=== PATIENT | female | born 1965 | race Caucasian/White ===

== ENCOUNTER → 2020-03-09 11:23 | Outpatient (CLI) | payer BC, SELFPAY ==
--- NOTE | ~2020-03-09 | MM_ITS ---
EXAMINATION: MM screening aneudy BI w mira HISTORY: Screening mammogram TECHNIQUE: Craniocaudal and mediolateral oblique 3-D tomosynthesis images were obtained and synthetic 2-D images were generated. CAD analysis was submitted and interpreted. COMPARISON: 02/05/2019, 02/02/2019, 07/11/2018, 12/31/2017 BREAST PARENCHYMAL COMPOSITION: The breasts are extremely dense, which lowers the sensitivity of mamm ography. FINDINGS: RIGHT BREAST: An asymmetry is present in the middle third of the slightly outer breast 2 cm from the nipple on the craniocaudal view. LEFT BREAST: There are stable changes of excisional biopsy in the left breast. There is no evidence o f suspicious mass, calcification, or architectural distortion to suggest malignancy. There has been n o significant interval change. IMPRESSION: 1. Right breast asymmetry on the craniocaudal view. 2. Additional mammographic views and possible breast ultrasound are recommended. BI-RADS Category 0: Incomplete: Needs additional imaging evaluation. Reviewed, dictated and finalized at location B. IMPRESSION: 1. Right breast asymmetry on the craniocaudal view. 2. Additional mammographic views and possible breast ultrasound are recommended . BI-RADS Category 0: Incomplete: Needs additional imaging evaluation.
== END ==
PROVIDERS: Visit Provider Nurse Practitioner Family
DX: Z12.31 Encounter for screening mammogram for malignant neoplasm of breast (principal); R92.8 Other abnormal and inconclusive findings on diagnostic imaging of breast
CPT/HCPCS: 77063; 77067

== ENCOUNTER → 2020-03-25 14:25 | Outpatient (CLI) | payer BC, SELFPAY ==
--- NOTE | ~2020-03-25 | MM_ITS ---
EXAMINATION: MM diagnostic mammo unilat RT HISTORY: Follow-up right breast asymmetry TECHNIQUE: Additional 3-D tomosynthesis images of the right breast were performed and synthetic 2-D i mages were generated. CAD analysis was submitted and interpreted. COMPARISON: Comparison to multiple prior studies sequentially, with oldest reviewed study dated 12/23. BREAST PARENCHYMAL COMPOSITION: The breasts are extremely dense, which lowers the sensitivity of mamm ography. FINDINGS: There are no suspicious masses, calcifications or architectural distortion in the right dejon ast to suggest malignancy. IMPRESSION: 1. No mammographic evidence for malignancy in the right breast. 2. Routine yearly screening mammogram and regular clinical breast examination are recommended. BI-RADS Category 1: Negative Reviewed, dictated and finalized at location A. IMPRESSION: 1. No mammographic evidence for malignancy in the right breast. 2. Routine yearly screening mammogram and regular clinical breast examination a re recommended. BI-RADS Category 1: Negative
== END ==
PROVIDERS: PCP Nurse Practitioner Family; Visit Provider Nurse Practitioner Family
DX: Z12.31 Encounter for screening mammogram for malignant neoplasm of breast (principal)
CPT/HCPCS: 77065

== ENCOUNTER → 2020-10-11 16:09 | Outpatient (CLI) | payer BC, SELFPAY ==
--- NOTE | ~2020-10-11 | US_ITS ---
EXAMINATION: US thyroid DATE: 10/11/2020 16:31 INDICATION: Thyroid nodule. TECHNIQUE: Multiple ultrasound images of the thyroid were obtained. COMPARISON: Ultrasound 04/17/2018 FINDINGS: The right thyroid lobe measures 4.9 x 1.7 x 1.5 cm. The left thyroid lobe measures 4.1 x 1.7 x 1.7 c m. In the right thyroid lobe, there is an 8 mm solid, hypoechoic, [id number] nodule with smooth margin without echogenic foci (TI-RADS TR4). In the left thyroid lobe, there is a 4 mm cystic lesion . IMPRESSION: 1. Small thyroid nodules, likely not clinically significant. No follow-up is needed. Reviewed, dictated and finalized at location A. MESSENGER IMPRESSION: 1. Small thyroid nodules, likely not clinically significant. No follow-up is ne eded.
== END ==
PROVIDERS: Visit Provider Internal Medicine Endocrinology, Diabetes & Metabolism
DX: E04.2 Nontoxic multinodular goiter (principal)
CPT/HCPCS: 76536

== ENCOUNTER → 2021-04-11 09:54 | Outpatient (CLI) | payer BC, SELFPAY ==
--- NOTE | ~2021-04-11 | MM_ITS ---
EXAMINATION: MM screening [facility] BI w mira HISTORY: Screening TECHNIQUE: Craniocaudal and mediolateral oblique 3-D tomosynthesis images were obtained and synthetic 2-D images were generated. CAD analysis was submitted and interpreted. COMPARISON: Comparison to multiple prior studies sequentially, with oldest reviewed study dated 12/31. BREAST PARENCHYMAL COMPOSITION: The breasts are extremely dense, which lowers the sensitivity of mamm ography. FINDINGS: The left breast is stable without evidence for malignancy. There is a developing cluster of indeterminate calcifications in the upper outer quadrant of the right breast posteriorly. IMPRESSION: 1. Developing cluster of indeterminate right breast calcifications. 2. Magnification views are recommended. BI-RADS Category 0: Incomplete: Needs additional imaging evaluation. Reviewed, dictated and finalized at location A.
== END ==
PROVIDERS: PCP Nurse Practitioner Family; Visit Provider Nurse Practitioner Family
DX: Z12.31 Encounter for screening mammogram for malignant neoplasm of breast (principal); R92.8 Other abnormal and inconclusive findings on diagnostic imaging of breast
CPT/HCPCS: 77063; 77067

== ENCOUNTER → 2021-04-27 09:21 | Outpatient (CLI) | payer BC, SELFPAY ==
--- NOTE | ~2021-04-27 | MM_ITS ---
EXAMINATION: MM diagnostic mammo unilat RT HISTORY: Follow-up right breast calcifications TECHNIQUE: Additional 3-D tomosynthesis images of the right breast were performed and synthetic 2-D i mages were generated. CAD analysis was submitted and interpreted. COMPARISON: 04/11/2021 BREAST PARENCHYMAL COMPOSITION: The breasts are heterogenously dense, which may obscure small masses. FINDINGS: There is a stable cluster of punctate monomorphic calcifications in the upper outer quadran t of the right breast which have a benign appearance. No suspicious masses, calcifications or archite ctural distortion to suggest malignancy. IMPRESSION: 1. No evidence for malignancy in the right breast. Benign calcifications. 2. Routine yearly screening mammogram and regular clinical breast examination are recommended. BI-RADS Category 2: Benign finding(s). Reviewed, dictated and finalized at location A. IMPRESSION: 1. No evidence for malignancy in the right breast. Benign calcifications. 2. Routine yearly screening mammogram and regular clinical breast examination a re recommended. BI-RADS Category 2: Benign finding(s).
== END ==
PROVIDERS: PCP Nurse Practitioner Family; Visit Provider Nurse Practitioner Family
DX: R92.1 Mammographic calcification found on diagnostic imaging of breast (principal)
CPT/HCPCS: 77065

== ENCOUNTER → 2021-11-10 08:00 | Outpatient (CLI) | payer BC, SELFPAY ==
--- NOTE | ~2021-11-10 | XR_ITS ---
XR lumbar spine min 4V DATE: 11/10/2021 08:41 INDICATION: Rheumatoid arthritis. Polyarticular osteoarthritis. TECHNIQUE: AP, lateral, bilateral oblique views, coned lateral lumbosacral view COMPARISON: lumbar spine 02/05/2017 CT lumbar spine FINDINGS: There is normal alignment of the lumbar spine. No fracture or bone destruction, spondylolys is or spondylolisthesis is evident. The lumbar and lumbosacral interspaces are well preserved. There is minimal spurring at L3-4. The sacroiliac joints are intact. There is a prominent of fecal material in the colon. IMPRESSION: Mild degenerative disc disease at L3-4 Reviewed, dictated and finalized at location A.
--- NOTE | ~2021-11-10 | XR_ITS ---
XR knee RT 3V DATE: 11/10/2021 08:41 INDICATION: Rheumatoid arthritis TECHNIQUE: [place] and standing AP and lateral views COMPARISON: None FINDINGS: No fracture or dislocation or joint effusion. Joint spaces are preserved. No radiopaque int ra-articular loose body or chondrocalcinosis. No periosteal reaction or bone destruction. IMPRESSION: Negative Reviewed, dictated and finalized at location A. IMPRESSION: Negative
--- NOTE | ~2021-11-10 | XR_ITS ---
XR knee LT 3V DATE: 11/10/2021 08:41 INDICATION: Rheumatoid arthritis TECHNIQUE: Standing AP and lateral views. [place] view. COMPARISON: None FINDINGS: No fracture or dislocation or joint effusion. No periosteal reaction or bone destruction. N o radiopaque intra-articular loose body or chondrocalcinosis or any significant joint space narrowing . IMPRESSION: Negative Reviewed, dictated and finalized at location A. IMPRESSION: Negative
== END ==
PROVIDERS: Visit Provider Internal Medicine
DX: M06.9 Rheumatoid arthritis, unspecified (principal); M47.816 Spondylosis without myelopathy or radiculopathy, lumbar region
CPT/HCPCS: 72110; 73562

== ENCOUNTER 2022-05-07 10:16 | Emergency (ER) | payer OTHER, BC, SELFPAY ==
[2022-05-07 11:03] VITALS: BP 99/65; PULSE 69; RESP 18; TEMP 36.4; O2SAT 100
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
== END 2022-05-07 11:50 | disposition home or self-care (01) ==
PROVIDERS: Emergency Provider Nurse Practitioner Family; PCP Nurse Practitioner Family
DX: M54.6 Pain in thoracic spine (principal); R10.31 Right lower quadrant pain; R10.32 Left lower quadrant pain; M19.90 Unspecified osteoarthritis, unspecified site; F41.9 Anxiety disorder, unspecified; F17.210 Nicotine dependence, cigarettes, uncomplicated; F32.A Depression, unspecified; E07.9 Disorder of thyroid, unspecified
CPT/HCPCS: 81003; 87086; 87088; 99213; G0463

== ENCOUNTER → 2022-08-10 12:30 | Outpatient (CLI) | payer BC, SELFPAY ==
--- NOTE | ~2022-08-10 | MM_ITS ---
EXAMINATION: MM screening aneudy BI w mira HISTORY: Screening mammogram TECHNIQUE: Craniocaudal and mediolateral oblique 3-D tomosynthesis images were obtained and synthetic 2-D images were generated. CAD analysis was submitted and interpreted. COMPARISON: 04/27/2021 diagnostic right mammogram 04/11/2021 bilateral screening mammogram 03/25/2020 diagnostic right mammogram 03/09/2020 bilateral screening mammogram BREAST PARENCHYMAL COMPOSITION: The breasts are extremely dense, which lowers the sensitivity of mamm ography. FINDINGS: Multiple bilateral microcalcifications are again noted, including a stable cluster grouped microcalcifications in the posterior outer mid right breast. There is no evidence of suspicious mass, calcification, or architectural distortion to suggest malignancy in either breast. There has been no suspicious interval change. IMPRESSION: 1. Benign findings. No mammographic evidence of malignancy. 2. Recommend routine screening mammography in one year. BI-RADS Category 2: Benign finding(s). Reviewed, dictated and finalized at location A. MIXER
== END ==
PROVIDERS: PCP Nurse Practitioner; Visit Provider Nurse Practitioner Family
DX: Z12.31 Encounter for screening mammogram for malignant neoplasm of breast (principal)
CPT/HCPCS: 77063; 77067

== ENCOUNTER 2023-01-21 02:32 | Emergency (ER) | payer BC, SELFPAY ==
--- NOTE | ~2023-01-21 | CT_ITS ---
EXAMINATION: CT abdomen pelvis w con INDICATION: Left lower quadrant pain TECHNIQUE: Computed tomographic images of the abdomen and pelvis were obtained after the administrati on of 100 cc of Omnipaque 350 intravenous contrast. The dose-length product (DLP) was 188.29 mGy-cm. Automated exposure control and iterative reconstruction technique were employed. COMPARISON: None available FINDINGS: Minimal dependent atelectasis is present in the lung bases. The heart size is normal. Cysts of the liver measure up to 13 mm. There is an 11 mm hyperenhancing lesion in liver segment VII, like ly a flash filling hemangioma. Punctate calcifications in an otherwise normal spleen likely represent healed granulomatous disease. The pancreatic duct is upper limits of normal in diameter in head and body. The gallbladder and adrenal glands are normal. The right kidney is unremarkable. A 3 mm hypoatt enuating lesion of the left kidney is too small to characterize but likely represents a cyst. There i s calcified atherosclerosis of the aorta and many of the other arteries. No pathologically enlarged a bdominal or pelvic lymph nodes are identified. No free intraperitoneal gas or evidence of bowel obstr uction. There is a small volume of pelvic ascites. There is a moderate volume of liquid stool in the colon. There is a 2 cm enhancing fibroid of the uterus. IMPRESSION: 1. Moderate volume of liquid stool in the colon which can be seen in the setting of diarrhea. Reviewed, dictated and finalized at location A. IMPRESSION: 1. Moderate volume of liquid stool in the colon which can be seen in the settin g of diarrhea.
[2023-01-21 02:40] VITALS: BP 121/66; PULSE 106; RESP 16; TEMP 36.6; O2SAT 97
[2023-01-21 02:56] LABS: Basophils Percent Auto 0.4 % (0.2-1.2); Eosinophils Absolute Auto 0.1 K/mm3 (0-0.3); Eosinophils Percent Auto 1.5 % (0-4.4); Hematocrit 41.9 % (37.0-47.0); Hemoglobin 13.8 g/dL (12.0-15.0); Immature Granulocyte Absolute 0.03 K/mm3 (0.00-0.031); Immature Granulocyte Percent A 0.4 % (0-0.5); Lymphocytes Absolute Auto 1.69 K/mm3 (0.9-3.2); Lymphocytes Percent Auto 20.6 % (18.3-44.2); Mean Corpuscular HGB Conc 32.9 g/dl (32-36); Mean Corpuscular Hemoglobin 30.3 pg (26-34); Mean Corpuscular Volume 92.1 fl (80-100); Mean Platelet Volume 8.7 fl (7.4-10.4); Monocytes Absolute Auto 1.1 K/mm3 (0.1-0.6); Monocytes Percent Auto 13.6 % (2.6-8.5); Neutrophils Absolute Auto 5.2 K/mm3 (1.3-6.7); Neutrophils Percent Auto 63.5 % (45.5-73.1); Platelet Count Result 246 k/mm3 (150-375); Red Blood Count 4.55 M/mm3 (4.2-5.4); Red Cell Distribution Width 13.8 % (11.5-14.5); White Blood Count 8.2 K/mm3 (4.5-10.0)
[2023-01-21 03:02] LABS: Appearance Urine Clear (Clear); Bacteria Urine None Seen /hpf; Bilirubin Urine Negative (Negative); Blood Urine Negative (Negative); Color Urine Yellow (Yellow); Glucose Urine UA Negative (Negative); Ketones Urine Negative (Negative); Leukocyte Esterase Ur Trace LEU/UL (Negative); Nitrate Urine Negative (Negative); Non Pathogenic Casts 0-2; Protein Urine Negative (Negative); RBC Urine 0-2 /hpf (0-2); Specific Grav Ur 1.012 (1.001-1.035); Squamous Epithelial Cell Urine None seen /hpf (Few); Urobilinogen Urine 0.2 mg/dL (<2.0); WBC Urine 0-5 /hpf; pH Urine 7.5 (5.0-9.0)
[2023-01-21 03:06] LABS: Add Urine Microscopic? YES
[2023-01-21 03:08] LABS: Alanine Aminotransferase 49 U/L (6-35); Albumin Level 4.3 g/dL (3.5-5.1); Alkaline Phosphatase 71 U/L (38-126); Anion Gap 3 mmol/L (8-16); Aspartate Amino Transferase 47 U/L (14-36); Bilirubin,Total 0.3 mg/dL (0.2-1.3); Blood Urea Nitrogen 9 mg/dL (7-17); Carbon Dioxide 30 mmol/L (22-30); Chloride 103 mmol/L (98-107); Estimated CRCL calculation 59 ml/min; Estimated Glomerular Filt Rate > 60; Glucose 126 mg/dL (65-110); Lipase 53 U/L (23-300); Potassium 4.2 mmol/L (3.4-5.0); Sodium 136 mmol/L (137-145)
[2023-01-21] MEDS: MORPHINE SULFATE (*CRX) 4 MG/ML INJ IV PUSH ×2 (03:57→06:06)
[2023-01-21] MEDS: ONDANSETRON INJ 4 MG/2 ML VIAL IV PUSH (03:57)
[2023-01-21] MEDS: SODIUM CHLORIDE 0.9% IV 1,000 ML 999 ML IV CONT (03:57)
--- NOTE | 2023-01-21 04:22 | ED.GENADULT ---
HPI - General Adult General Chief complaint: Abdominal Pain Stated complaint: diarrhea, L side pain Time Seen by Provider: 01/21/23 03:31 History of Present Illness HPI narrative: Patient a 57-year-old female who presents the emergency department with chief complaint of abdominal pain. Patient reports has been having diarrhea for some time now is actually seen her primary care provider treated with antibiotics patient reports she was started on 2 antibiotics and has completed one of them but she is not sure which one it was and had 1 pill left of the other 1 which was Flagyl patient reports that her abdomen is diffusely tender reports that it is worse whenever she lays flat and reports she is still having diarrhea. The patient reports no blood in her stool denies vomiting. Related Data Home Medications Medication Instructions Recorded Confirmed gabapentin 300 mg capsule 300 mg PO BID 08/03/19 05/07/22 lamotrigine 200 mg tablet 200 mg PO BID 08/03/19 05/07/22 lorazepam 0.5 mg tablet 1 mg PO DAILY 08/03/19 05/07/22 propranolol 10 mg tablet 20 mg PO TID 08/03/19 05/07/22 trazodone 150 mg tablet 150 mg PO DAILY 08/03/19 05/07/22 trihexyphenidyl 2 mg tablet 2 mg PO DAILY 08/03/19 05/07/22 cariprazine 3 mg capsule (Vraylar) 3 mg PO DAILY 05/07/22 05/07/22 folic acid 1 mg tablet 1 mg PO DAILY 05/07/22 05/07/22 levothyroxine 25 mcg tablet 25 mcg PO DIRECTED 05/07/22 05/07/22 spironolactone 50 mg tablet 150 mg PO DAILY 05/07/22 05/07/22 vilazodone 40 mg tablet 40 mg PO DAILY 05/07/22 05/07/22 Allergies Allergy/AdvReac Type Severity Reaction Status Date / Time No Known Drug Allergies Allergy Unknown N/A Verified 01/21/23 03:19 Review of Systems Review of Systems: A 10 system review of systems was completed on the patient and is negative except for what is stated in the HPI. Nursing and ancillary documentation was reviewed. [facility] Past Medical History Medical History Anxiety Arthritis Bilateral hand pain Depression Encounter for screening for other viral diseases Generalized osteoarthritis of multiple sites Migraines Seronegative rheumatoid arthritis of both hands Thyroid disease Vitamin D deficiency (~02/2020) Vitamin D deficiency Surgical History Surgical History H/O breast surgery Social History Social History Smoking status: Heavy tobacco smoker Alcohol intake: never Exam Narrative: GENERAL: Well-appearing, well-nourished, and in no acute distress. HEAD: Normocephalic, atraumatic. EYES: PERRLA and EOMI. ENT: Nares clear, no rhinorrhea or epistaxis. Mucous membranes moist. NECK: Supple. CHEST: Clear to auscultation. No respiratory distress. HEART: Regular rate and rhythm. No murmur heard. Normal peripheral pulses. ABDOMEN: Soft, diffusely tender to palpation, nondistended, normal active bowel sounds. EXTREMITIES: Normal range of motion. No edema. SKIN: Warm, dry, no rash. NEURO: No focal deficits. Alert and oriented x3. PSYCH: Normal mood and affect. Course Vital Signs Vital signs: Vital Signs Temperature 36.6 C 01/21/23 02:40 Pulse Rate 106 H 01/21/23 02:40 Respiratory Rate 16 01/21/23 02:40 Blood Pressure 121/66 01/21/23 02:40 Pulse Oximetry 97 01/21/23 02:40 Oxygen Delivery Room Air 01/21/23 02:40 Temperature 36.6 C 01/21/23 02:40 Pulse Rate 106 H 01/21/23 02:40 Respiratory Rate 16 01/21/23 02:40 Blood Pressure 121/66 01/21/23 02:40 Pulse Oximetry 97 01/21/23 02:40 Oxygen Delivery Room Air 01/21/23 02:40 Medical Decision Making MDM Narrative Medical decision making narrative: Differential diagnosis includes colitis, enteritis, diverticulitis, CBC was obtained which was within normal limits CMP was within normal limits with exception of mildly e
[2023-01-21 07:31] VITALS: BP 106/52; PULSE 93; RESP 16; O2SAT 100
== END 2023-01-21 07:34 | disposition home or self-care (01) ==
PROVIDERS: Emergency Provider Emergency Medicine; PCP Nurse Practitioner Family
DX: K52.9 Noninfective gastroenteritis and colitis, unspecified (principal); E07.9 Disorder of thyroid, unspecified; E55.9 Vitamin D deficiency, unspecified; M05.842 Other rheumatoid arthritis with rheumatoid factor of left hand; M05.841 Other rheumatoid arthritis with rheumatoid factor of right hand; M19.90 Unspecified osteoarthritis, unspecified site; F32.A Depression, unspecified; F41.9 Anxiety disorder, unspecified; F17.200 Nicotine dependence, unspecified, uncomplicated
CPT/HCPCS: 36415; 74177; 80053; 81001; 81025; 83690; 85025; 96361; 96374; 96375; 96376; 99284; J2270; J2405; J7030; Q9967

== ENCOUNTER 2023-03-12 00:56 | Day surgery (SDC) | payer BC, SELFPAY ==
[2023-03-01 13:08] VITALS: BMI 20.8
[2023-03-12 07:55] VITALS: BP 104/74; PULSE 96; RESP 16; TEMP 36.2; O2SAT 100
[2023-03-12] MEDS: LACTATED RINGERS 1,000 ML 150 ML IV CONT (08:04)
--- NOTE | 2023-03-12 08:28 | WPDANESEPPF ---
Anes - Initial Pre Proc Eval Procedure: Operation Date: 03/12/23 09:15 Proposed Procedures p Colonoscopy - Stephon Ibarra MD Date/Time: 03/12/23 08:28 Surgeon: Stephon Ibarra MD Pre Op Diagnosis: Left Lower Quad Pain, Diarrhea Patient Data Age: 57 Gender: F Height: 1.55 m Weight: 48.7 kg Last Vital Signs Temp 97.2 F L 03/12/23 07:55 Pulse 96 03/12/23 07:55 Resp 16 03/12/23 07:55 BP 104/74 03/12/23 07:55 Pulse Ox 100 03/12/23 07:55 O2 Del Method Room Air 03/12/23 07:55 Allergies Allergy/AdvReac Type Severity Reaction Status Date / Time No Known Drug Allergies Allergy Unknown N/A Verified 03/12/23 07:51 Home Medications Medication Instructions Recorded Confirmed Type gabapentin 300 mg capsule 600 mg PO TID 08/03/19 03/01/23 History lamotrigine 200 mg tablet 200 mg PO BID 08/03/19 03/01/23 History lorazepam 0.5 mg tablet 1 mg PO DAILY 08/03/19 03/12/23 History propranolol 10 mg tablet 20 mg PO TID 08/03/19 03/12/23 History trazodone 150 mg tablet 150 mg PO DAILY 08/03/19 03/01/23 History trihexyphenidyl 2 mg tablet 2 mg PO DAILY 08/03/19 03/01/23 History folic acid 1 mg tablet 1 mg PO DAILY 05/07/22 03/01/23 History levothyroxine 25 mcg tablet 25 mcg PO DIRECTED 05/07/22 03/01/23 History spironolactone 50 mg tablet 150 mg PO DAILY 05/07/22 03/01/23 History vilazodone 40 mg tablet 40 mg PO DAILY 05/07/22 03/01/23 History leflunomide 20 mg tablet 20 mg PO DAILY #30 tabs 11/09/22 03/01/23 Rx dicyclomine 20 mg tablet 20 mg PO TID PRN abdominal pain 02/25/23 03/01/23 Rx #30 tabs cyanocobalamin (vitamin B-12) 1,000 mcg IM WEEKLY 03/01/23 03/01/23 History 1,000 mcg/mL injection solution (Dodex) cyclobenzaprine 10 mg tablet 10 mg PO TID PRN Pain 03/01/23 03/01/23 History hydroxychloroquine 200 mg PO DAILY 03/01/23 03/01/23 History liothyronine 5 mcg tablet 5 mcg PO BID 03/01/23 03/01/23 History ziprasidone HCl 80 mg capsule 80 mg PO BID 03/01/23 03/01/23 History Patient hx anesthesia problems: none Family hx anesthesia problems: none Results Review: All pre-operative results and documents have been reviewed as part of the pre-operative evaluation. [facility] Past Medical History Medical History (Updated 02/25/23 @ 14:03 by SAAD Ivy) Anxiety Arthritis Bilateral hand pain Depression Encounter for screening for other viral diseases Generalized osteoarthritis of multiple sites Left lower quadrant abdominal pain Migraines Seronegative rheumatoid arthritis of both hands Thyroid disease Vitamin D deficiency (~02/2020) Vitamin D deficiency Surgical History Surgical History H/O breast surgery Social History Social History Smoking packs per day: 1 Smoking cigarettes per day: 20.0 Years smoked: 35 Smoking pack-years: 35.00 Smoking status: Current every day smoker Tobacco type: cigarettes Alcohol intake: never Living arrangements: with family Spiritual care concerns: No Anes - Eval Final PreProcedure Day of Procedure 03/12/23 08:28 Patient weight: normal Heart: regular rate and rhythm Lungs: clear to auscultation Airway: Mallampati scale class III Neurological: alert and oriented Last oral intake: >/= 8 hours ASA classification: III Emergent: no Anesthetic plan: proceed Anesthesia type and monitoring: general GIVS and standard monitoring Results Review: All pre-operative results and documents have been reviewed as part of the pre-operative evaluation. Informed Consent: The patient's anesthetic plan and its attendant risks and benefits were discussed with the patient/family/POA. Questions were solicited and answers provided to the satisfaction of the patient/family/POA.
--- NOTE | 2023-03-12 08:39 | WPDHPUPDATE1 ---
History and Physical Update Update Date/Time: 03/12/23 08:39 History and Physical has been reviewed, including an updated exam of the patient. There are NO changes in the patient's condition. Risks, benefits, and alternatives have been discussed and questions answered. Patient agrees to proceed with procedure.
[2023-03-12 08:59] VITALS: BP 99/59; PULSE 73; RESP 20; O2SAT 99
[2023-03-12 09:09] VITALS: BP 79/52; PULSE 71; RESP 12; O2SAT 98
[2023-03-12 09:16] VITALS: BP 93/60; PULSE 69; RESP 14; O2SAT 98
[2023-03-12 09:31] VITALS: BP 112/74; PULSE 72; RESP 16; O2SAT 98
== END 2023-03-12 09:35 | disposition home or self-care (01) ==
PROVIDERS: PCP Nurse Practitioner Family; Visit Provider Internal Medicine Gastroenterology
PROC: 0DJD8ZZ Inspection of Lower Intestinal Tract, Via Natural or Artificial Opening Endoscopic (ICD-10-PCS; CPT 45378; principal; 2023-03-12 09:15)
DX: Z12.11 Encounter for screening for malignant neoplasm of colon (principal); E07.9 Disorder of thyroid, unspecified; F41.9 Anxiety disorder, unspecified; F32.A Depression, unspecified; M06.042 Rheumatoid arthritis without rheumatoid factor, left hand; M06.041 Rheumatoid arthritis without rheumatoid factor, right hand; F17.210 Nicotine dependence, cigarettes, uncomplicated
CPT/HCPCS: 45378; J2704; J7120

== ENCOUNTER → 2023-05-20 11:32 | Outpatient (CLI) | payer BC, SELFPAY ==
--- NOTE | ~2023-05-20 | XR_ITS ---
XR knee LT min 4V 05/20/2023 12:22 INDICATION: Rheumatoid arthritis PROCEDURE: 4 views left knee COMPARISON: 11/10/2021 FINDINGS: Fracture, dislocation or subluxation is not identified. No significant joint effusion. The soft tissues appear within normal limits. No foreign bodies are identified. IMPRESSION: 1: NO ACUTE BONE OR JOINT ABNORMALITY IDENTIFIED. Reviewed, dictated and finalized at location B.
--- NOTE | ~2023-05-20 | XR_ITS ---
EXAM: XR knee RT min 4V DATE: 05/20/2023 12:22 HISTORY: M06.041 - RA without rheumatoid factor, osteoarthritis multi . COMPARISON: None available. FINDINGS: Normal mineralization. No fracture or dislocation. No lytic or blastic lesion. Joint space s are maintained. No erosion or periosteal change. Soft tissues within normal limits. IMPRESSION: Normal right knee radiograph findings. Reviewed, dictated and finalized at location K.
== END ==
PROVIDERS: PCP Internal Medicine; Visit Provider Internal Medicine
DX: M06.041 Rheumatoid arthritis without rheumatoid factor, right hand (principal); M06.042 Rheumatoid arthritis without rheumatoid factor, left hand; M15.9 Polyosteoarthritis, unspecified
CPT/HCPCS: 73564

== ENCOUNTER 2024-03-11 15:05 | Outpatient (CLI) | payer OTHER, SELFPAY ==
--- NOTE | ~2024-03-11 | MM_ITS ---
EXAMINATION: MM screening [facility] BI w mira HISTORY: Screening TECHNIQUE: Craniocaudal and mediolateral oblique 3-D tomosynthesis images were obtained and synthetic 2-D images were generated. CAD analysis was submitted and interpreted. COMPARISON: Comparison to multiple prior studies sequentially, with oldest reviewed study dated 02/05. BREAST PARENCHYMAL COMPOSITION: Dense: The breasts are heterogeneously dense, which may obscure small masses FINDINGS: There is no evidence of suspicious mass, calcification, or architectural distortion to sugg est malignancy in either breast. There has been no suspicious interval change. IMPRESSION: 1. No mammographic evidence of malignancy. 2. Recommend routine screening mammography in one year. BI-RADS Category 1: Negative Reviewed, dictated and finalized at location B.
== END 2024-03-11 15:06 ==
PROVIDERS: PCP Nurse Practitioner; Visit Provider Nurse Practitioner
DX: Z12.31 Encounter for screening mammogram for malignant neoplasm of breast (principal)
CPT/HCPCS: 77063; 77067

== ENCOUNTER 2024-04-14 10:08 | Outpatient (CLI) | payer OTHER, SELFPAY ==
--- NOTE | 2024-04-14 10:24 | EST_ITS ---
Patient Info Name: Maite Gonzales Age: 58 years : 1965 Gender: Female Ht: 61 in Wt: 111 lbs BSA: 1.47 m2 HR: 72 bpm BP: 116 / 74 mmHg Exam Date: 04/14/2024 10:54 AM Exam Location: [facility] Patient Status: Outpatient Admit Date: 04/14/2024 Staff Ordering Physician: Mariano Barron DO Attending Provider: Mariano Barron DO Exercise Technologist: Lizet Schmitt CT Exercise Physician: Mariano Barron DO Exam Type: CA stress test treadmill Study Info A treadmill exercise stress test was performed. Summary 1. 1. Negative Justyn exercise stress test for ischemic ST changes by ECG criteria. 2. 2. Reduced functional capacity, achieving 7 METs of workload. 3. 3. Appropriate HR response to exercise. 4. 4. Appropriate HR recovery at 1 minute post exercise. 5. 5. No imaging with stress testing. 6. 6. Patient informed of the above results. Protocol: Justyn Stress ECG Details Stage: REST Duration (min): 1 min : 8 sec Speed (mph): 0.0 Grade (%): 0 HR (bpm): 77 SBP (mmHg): 116 DBP (mmHg): 74 METS: --- Stage: REST Duration (min): 4 min : 32 sec Speed (mph): 0.0 Grade (%): 0 HR (bpm): 88 SBP (mmHg): 116 DBP (mmHg): 74 METS: --- Stage: STAGE 1 Duration (min): 1 min : 0 sec Speed (mph): 1.7 Grade (%): 10 HR (bpm): 113 SBP (mmHg): 116 DBP (mmHg): 74 METS: --- Stage: STAGE 1 Duration (min): 2 min : 0 sec Speed (mph): 1.7 Grade (%): 10 HR (bpm): 119 SBP (mmHg): 116 DBP (mmHg): 74 METS: --- Stage: STAGE 1 Duration (min): 3 min : 0 sec Speed (mph): 1.7 Grade (%): 10 HR (bpm): 121 SBP (mmHg): 162 DBP (mmHg): 56 METS: --- Stage: STAGE 2 Duration (min): 1 min : 0 sec Speed (mph): 2.5 Grade (%): 12 HR (bpm): 133 SBP (mmHg): 162 DBP (mmHg): 56 METS: --- Stage: STAGE 2 Duration (min): 1 min : 45 sec Speed (mph): 2.5 Grade (%): 12 HR (bpm): 141 SBP (mmHg): 198 DBP (mmHg): 59 METS: --- Stage: RECOVERY Duration (min): 0 min : 14 sec Speed (mph): 0.0 Grade (%): 0 HR (bpm): 144 SBP (mmHg): 198 DBP (mmHg): 59 METS: --- Stage: RECOVERY Duration (min): 1 min : 14 sec Speed (mph): 0.0 Grade (%): 0 HR (bpm): 115 SBP (mmHg): 198 DBP (mmHg): 59 METS: --- Stage: RECOVERY Duration (min): 2 min : 14 sec Speed (mph): 0.0 Grade (%): 0 HR (bpm): 94 SBP (mmHg): 198 DBP (mmHg): 59 METS: --- Stage: RECOVERY Duration (min): 3 min : 3 sec Speed (mph): 0.0 Grade (%): 0 HR (bpm): 96 SBP (mmHg): 154 DBP (mmHg): 62 METS: --- Rest HR: 88 bpm Peak HR: 144 bpm Rest Sys BP: 116 mmHg Peak Sys BP: 198 mmHg Max Pred HR: 164 bpm % Max Pred HR: 88 % Target HR: 139 bpm Max RPP: 28,512 bpm*mmHg Gusman Score: -5 Termination Reason: Reached target heart rate or workload Cardiac Symptoms: Shortness of breath Max ST Seg Deviation: 2.00 mm Total Time: 4 min : 45 sec Rest Rushing BP: 74 mmHg Peak Rushing BP: 59 mmHg Angina Score: None Total METS:
== END 2024-04-14 10:09 | disposition home or self-care (01) ==
PROVIDERS: PCP Nurse Practitioner; Visit Provider Internal Medicine Cardiovascular Disease
DX: R07.9 Chest pain, unspecified (principal)
CPT/HCPCS: 93017

== ENCOUNTER 2024-10-26 10:15 | Outpatient (CLI) | payer OTHER, SELFPAY ==
--- NOTE | ~2024-10-26 | CT_ITS ---
Pre and postcontrast Head CT History: Chronic headache Technique: Axial imaging of the brain was performed prior to and following intravenous administratio n of 100 cc of Omnipaque 350 contrast material.. Dose reduction technique was used on this scan by ut ilizing automated exposure control and iterative reconstruction technique. The dose-length product (D LP) was 1199.14 mGy-cm. Findings: There is no evidence of intracranial hemorrhage, mass lesion, or acute infarct. Brain par enchyma appears normal. The ventricles and subarachnoid spaces are normal in size. The calvarium ap pears normal. The visualized paranasal sinuses and mastoid air cells are clear. No abnormal postcontrast enhancement identified. Impression: No significant abnormality seen. Reviewed, dictated and finalized at [facility]. Impression: No significant abnormality seen.
--- NOTE | ~2024-10-26 | CT_ITS ---
CT Scan of the Chest without Contrast: Clinical Indication: Lung cancer screening, nicotine dependence Technique: Contiguous sections were acquired throughout the chest without intravenous contrast. Dose reduction technique was used on this scan by utilizing automated exposure control and iterative recon struction technique. The dose-length product (DLP) was 35.53 mGy-cm. Findings: There is no evidence of any significant mediastinal, hilar or axillary lymphadenopathy. The mediastin al soft tissues appear normal. There is no evidence of pleural or pericardial effusion. Calcified right middle lobe granuloma present. Images through the upper abdomen reveal no abnormalities. Impression: Lung RADS 2: Benign appearance. 12 month follow-up screening CT advised. Reviewed, dictated and finalized at location . Impression: Lung RADS 2: Benign appearance. 12 month follow-up screening CT advised.
== END 2024-10-26 10:16 | disposition home or self-care (01) ==
LOC: MICIMG 10:18
PROVIDERS: PCP Family Medicine; Visit Provider Family Medicine
DX: Z12.2 Encounter for screening for malignant neoplasm of respiratory organs (principal); R51.9 Headache, unspecified; F17.210 Nicotine dependence, cigarettes, uncomplicated
CPT/HCPCS: 70470; 71271; Q9967

== ENCOUNTER 2025-03-29 15:40 | Outpatient (CLI) | payer OTHER, SELFPAY ==
--- NOTE | ~2025-03-29 | MM_ITS ---
EXAMINATION: MM screening [facility] BI w mira HISTORY: Screening mammogram TECHNIQUE: Craniocaudal and mediolateral oblique 3-D tomosynthesis images were obtained and synthetic 2-D images were generated. CAD analysis was submitted and interpreted. COMPARISON: 03/11/2024, 08/10/2022, 04/11/2021 BREAST PARENCHYMAL COMPOSITION:Dense: The breasts are heterogeneously dense, which may obscure small masses. FINDINGS: No suspicious mass, calcification, or architectural distortion are identified in either breast to suggest malignancy. There has been no suspicious interval change. IMPRESSION: No mammographic evidence of malignancy. Recommend routine screening mammography in one year. BI-RADS Category 1: Negative Reviewed, dictated and finalized at location .
== END 2025-03-29 15:41 | disposition home or self-care (01) ==
LOC: MICIMG 15:40
PROVIDERS: PCP Nurse Practitioner; Visit Provider Family Medicine
DX: Z12.31 Encounter for screening mammogram for malignant neoplasm of breast (principal)
CPT/HCPCS: 77063; 77067

== ENCOUNTER 2025-04-17 15:54 | Emergency (ER) | payer OTHER, SELFPAY ==
--- OUTSIDE RECORDS SUMMARY | 2001-06-21 05:15 | XMS_ITS | Continuity of Care Document ---
Author Organization [facility] Address [address] [place] [address] [place] [address] Phone Care Team Providers Care Potter Or Ceramic Artist Name Role Phone Baldemar Valente DO Unavailable Unavailable Advance Directives Directive Yes / No Effective Date File Name No Information Encounters Encounter Description Practice Location Reason(s) For Visit Diagnoses Date Provider Providers Copied on Encounter [facility], [address], [place], [place], [id number], tel:[phone] [facility] No Information Ambrosio Hernandez. [address] [place], [address], [place]. tel: [phone] Family History Family Member Type Diagnosis Age At Onset No Information Payers Payer name Insurance type Covered alliance party ID Authoriza tibandar(s) [employer] SOI CI [id number] Social History Type Description Quantity Date Captured Comments Sex Female Smoking Status No Information Chief Complaint And Reason For Visit No Information Reason For Referral Reason For Referral No Information History Of Present Illness Encounter Date Complaint History Of Prese nt Illness No Information Functional Status Date Functional Assessmen t No Information Instructions Date Instruction Additional Infor mation No Information Assessments Type Assessment Date No Information Patient Care Teams Name Effective Dates (start - stop) Status Members No Information
--- OUTSIDE RECORDS SUMMARY | 2001-06-21 05:15 | XMS_ITS | Continuity of Care Document ---
Author Organization [facility] Address [address] [place] [address] [place] [address] Phone Care Team Providers Care Mosaic Worker Name Role Phone Baldemar Valente DO Unavailable Unavailable Advance Directives Directive Yes / No Effective Date File Name No Information Encounters Encounter Description Practice Location Reason(s) For Visit Diagnoses Date Provider Providers Copied on Encounter [facility], [address], [place], [place], [id number], tel:[phone] [facility] No Information Ambrosio Hernandez. [address] [place], [address], [place]. tel: [phone] Family History Family Member Type Diagnosis Age At Onset No Information Payers Payer name Insurance type Covered green party ID Authoriza tibandar(s) [employer] SOI CI [id number] Social History Type Description Quantity Date Captured [...]
--- OUTSIDE RECORDS SUMMARY | 2025-04-17 15:57 | XMS_ITS | Clinical Summary ---
Author Organization [facility] Address [address] [place] [address] Care Team Providers Care Data Analytics Architect Name Role Phone Unavailable Primary Care Provider Unavailabl e Encounters Date Type Department Care Team Description 03/12/2025 Telephone [facility], [place] [address] [place] [address] Se[place] Ron, A Appointment Request (Self ref) from Last 3 Months Social History Tobacco Use Types Packs/Day Years Used Date Smoking Tobacco: Never Assessed Comments Unknown Sex and Gender Information Value Date Recorded Sex Assigned at Not on file Legal Sex Female 6:29 PM CDT Gender Identity Not on file Sexual Orientation Not on file Plan of Treatment Health Maintenance Due Date Last Done Comments Cervical Cancer Screening Pa p Smear (Age 30 to 64) Every 3 Years 1965 Colorectal Cancer Screening Colonoscopy (10 Years) 1965 Annual Physical 1970 Hepatitis C 1985 DTaP, Tdap and Td Vaccines ( 1 - Tdap) 1986 Hepatitis B Vaccines (1 of 3 - 19+ 3-dose series) 1986 Cervical Cancer Screening Pa p with HPV Testing (Age 30 to 64) Every 5 Years 1997 Cervical Cancer Screening with HPV 1997 Mammogram Screening 2007 Pneumococcal Vaccine: 50+ Ye ars (1 of 1 - PCV) 2017 Zoster Vaccines (1 of 2) 2017 COVID-19 Vaccine (2023-2 5 season) 2025 Meningococcal B Vaccine Aged Out No l onger eligible based on patient's age to complete this topic Meningococcal Vaccine Aged Out No lisa abbie eligible based on patient's age to complete this topic RSV Immunizations Under 20 Months Aged Out No longer eligible based on patient's age to complete this topic
--- NOTE | 2025-04-17 16:00 | ED.GENADULT ---
HPI - General Adult General Chief complaint: Abdominal Pain Stated complaint: stomach pain Time Seen by Provider: 04/17/25 16:00 Source: patient Mode of arrival: ambulatory Limitations: no limitations History of Present Illness HPI narrative: 59-year-old female patient presents to the [facility] with complaints of nausea, vomiting abdominal pain. Patient states that last Saturday she had some issues with vomiting. Patient states she had some chicken and green beans that she can recall and shortly after eating she started vomiting. Patient states that it had resolved on Saturday and Saturday and had another episode of vomiting on Saturday after drinking her coffee. Patient states that she has not had any vomiting today but has been belching a lot and does have some nausea. Patient states only mild abdominal pain at times last bowel movement was today but states that she does take stool softeners daily in order to go to the bathroom. Related Data Home Medications ?Medication ?Instructions ?Recorded ?Confirmed ?Last Taken ?Type gabapentin 300 mg capsule 600 mg PO TID 08/03/19 02/20/24 Unknown History lamotrigine 200 mg tablet 200 mg PO BID 08/03/19 02/20/24 Unknown History lorazepam 0.5 mg tablet 1 mg PO DAILY 08/03/19 02/20/24 03/12/23 History propranolol 10 mg tablet 20 mg PO TID 08/03/19 02/20/24 03/12/23 History trazodone 150 mg tablet 150 mg PO DAILY 08/03/19 02/20/24 Unknown History trihexyphenidyl 2 mg tablet 2 mg PO DAILY 08/03/19 02/20/24 Unknown History levothyroxine 25 mcg tablet 25 mcg PO DIRECTED 05/07/22 02/20/24 Unknown History spironolactone 50 mg tablet 150 mg PO DAILY 05/07/22 02/20/24 Unknown History vilazodone 40 mg tablet 40 mg PO DAILY 05/07/22 02/20/24 Unknown History cyanocobalamin (vitamin B-12) 1,000 mcg IM WEEKLY 03/01/23 02/20/24 Unknown History 1,000 mcg/mL injection solution (Dodex) liothyronine 5 mcg tablet 5 mcg PO BID 03/01/23 02/20/24 Unknown History ziprasidone HCl 80 mg capsule 80 mg PO BID 03/01/23 02/20/24 Unknown History Allergies Allergy/AdvReac Type Severity Reaction Status Date / Time amitriptyline AdvReac Unknown bloating Verified 04/17/25 15:59 bupropion (From Wellbutrin) AdvReac Unknown Headache Verified 04/17/25 15:59 Review of Systems Review of Systems: CONSTITUTIONAL: Denies fever, chills, or sweats. EYES: Denies visual changes, redness, or discharge. ENT: Denies rhinorrhea, congestion, sore throat, or otalgia. CARDIOVASCULAR: Denies chest pain, palpitations, or edema. RESPIRATORY: Denies cough or dyspnea. GASTROINTESTINAL: Positive abdominal pain, nausea, vomiting, denies diarrhea. GENITOURINARY: Denies dysuria or hematuria. SKIN: Denies rash or itching. MUSCULOSKELETAL: Denies back pain, joint pain, or myalgia. NEUROLOGIC: Denies headache, numbness, or weakness. PSYCHIATRIC: Denies anxiety or depression. [facility] Past Medical History Medical History Left lower quadrant abdominal pain Seronegative rheumatoid arthritis of both hands Vitamin D deficiency Generalized osteoarthritis of multiple sites Bilateral hand pain Encounter for screening for other viral diseases Vitamin D deficiency (~02/2020) Anxiety Arthritis Depression Migraines Thyroid disease Surgical History Surgical History H/O breast surgery Family History Family History Other Asthma Depression Hypertension Social History Social History Smoking packs per day: 1 Smoking cigarettes per day: 20.0 Years smoked: 35 Smoking pack-years: 35.00 Smoking status: Current every day smoker Tobacco type: cigarettes Alcohol intake: never Substance use: never Substance use type: does not use Lack of Transportation: No Lack of Food: Never True Current Housing: I Have Housing Concerned About Future Housing: No Difficulty Paying Gas/Electric Bills: No Difficulty Paying for Meds: No Currently Unemployed: No Education: Decline to Answer Difficulty w/ Childcare or Family Care: No Living arrangements: with family Spiritual care concerns: No Comments At the time of my signature I agree with nursing past medical history, surgical, social, and family history. There is no relevant family history pertinent to the presenting complaint. Exam Narrative: GENERAL: Well-appearing, well-nourished, and in no acute distress. HEAD: Normocephalic, atraumatic. EYES: PERRLA and EOMI. ENT: Nares clear, no rhinorrhea or epistaxis. Mucous membranes moist. NECK: Supple. No lymphadenopathy CHEST: Clear to auscultation. No respiratory distress. HEART: Regular rate and rhythm. No murmur heard. Normal peripheral pulses. ABDOMEN: Soft, flat, nondistended. No guarding, rebound tenderness, or rigid. No pulsatilla masses. hyperactive Bowel sounds present in all four quadrants. No organomegaly. Negative Riddle?s sign. No periumbicial tenderness. No Supra public tenderness or distension. Good femoral pulses bilaterally. No hernia noted. No scars or surface trauma. EXTREMITIES: Normal range of motion. No edema. SKIN: Warm, dry, no rash. NEURO: No focal deficits. Alert and oriented x3. Course Course Level of Care: Express Care Visit Vital Signs Vital signs: Vital Signs Temperature 36.5 C 04/17/25 16:02 Pulse Rate 76 04/17/25 16:02 Respiratory Rate 18 04/17/25 16:02 Blood Pressure 126/48 L 04/17/25 16:02 Pulse Oximetry 98 04/17/25 16:02 Oxygen Delivery Room Air 04/17/25 16:02 Temperature 36.5 C 04/17/25 16:02 Pulse Rate 76 04/17/25 16:02 Respiratory Rate 18 04/17/25 16:02 Blood Pressure 126/48 L 04/17/25 16:02 Pulse Oximetry 98 04/17/25 16:02 Oxygen Delivery Room Air 04/17/25 16:02 vital signs reviewed. Medical Decision Making MDM Narrative Medical decision making narrative: Discussed with patient that her abdominal exam is negative today which is reassuring. Discussed with her that just because she does not have any acute gallbladder issues today I would still recommend that she follow-up with her primary doctor for a possible evaluation or ultrasound of her gallbladder. Discussed with patient that I will go ahead and provide her some Zofran for the nausea vomiting as well as some medications to help with GERD symptoms. Also discussed with patient that she may want to look into possibly taking some probiotics to help with her abdominal issues but regardless she needs to follow up with her doctor for further testing as needed. Patient verbalized understanding denies any other questions or concerns at this time. Differential Diagnosis Differential Diagnosis: Differential diagnosis: Appendicitis, ovarian torsion, gallbladder disease, ovarian torsion, pancreatitis, lower lobe pneumonia,AAA, AMI or ACS, DKA, diverticulitis. Vital Signs Vital Signs: Vital Signs Temperature 36.5 C 04/17/25 16:02 Pulse Rate 76 04/17/25 16:02 Respiratory Rate 18 04/17/25 16:02 Blood Pressure 126/48 L 04/17/25 16:02 Pulse Oximetry 98 04/17/25 16:02 Oxygen Delivery Room Air 04/17/25 16:02 Temperature 36.5 C 04/17/25 16:02 Pulse Rate 76 04/17/25 16:02 Respiratory Rate 18 04/17/25 16:02 Blood Pressure 126/48 L 04/17/25 16:02 Pulse Oximetry 98 04/17/25 16:02 Oxygen Delivery Room Air 04/17/25 16:02 Critical Care Time Critical Care Time Critical Care Time: No Discharge Plan Discharge Clinical Impression: GERD (gastroesophageal reflux disease) Patient Disposition: Home Condition: Stable Instructions: Antibiotic Form, GERD (Gastroesophageal Reflux Disease) (ED) Additional Instructions: No serious cause of abdominal pain is found at this time. It is important to carefully watch for changes in the abdominal pain that might suggest a serious condition. See your doctor or return to the emergency department immediately if your condition gets worse. These symptoms suggest serious causes of abdominal pain: Your unable to walk easily or walking in a bent over position. You are experiencing pain in the right lower part of her abdomen. Stepping or jumping results in severe pain. The abdomen is hard and painful when you press on it. There is severe abdominal pain when coughing. You are vomiting or gagging. Vomiting is bloody or green or looks like chocolate or coffee. The belly looks very full or basic. You're experiencing severe pain every 3-20 minutes. The stool is bloody or black. You are drowsy, weak, fussy, pale. Gastroesophageal reflux disease (GERD) is a backflow of acid from the stomach into the swallowing tube (esophagus). Home care These home care steps can help you manage GERD: Maintain a healthy weight. Get help to lose any extra pounds. Avoid lying down after meals. Avoid eating late at night. Elevate the head of your bed by 6 inches. You can do this by placing wooden blocks or bed risers under the head of your bed. Avoid wearing tight-fitting clothes. Avoid foods that might irritate your stomach, such as the following: Alcohol Fat Chocolate Caffeine Spearmint or peppermint Begin an exercise program. You can benefit from simple activities, such as walking or gardening. Break the smoking habit. Enroll in a stop-smoking program to improve your chances of success. Limit alcohol intake to no more than 2 drinks a day. Take your medicines exactly as directed. Don?t skip doses. Avoid [id number] nonsteroidal anti-inflammatory medicines, such as aspirin and ibuprofen, unless recommended by your healthcare provider for certain conditions. If possible, avoid nitrates (heart medicines, such as nitroglycerin and isosorbide dinitrate ). Follow-up with your primary doctor in the next 5-7 days as needed. When to call the healthcare provider Call your healthcare provider immediately if you have any of the following: Trouble swallowing Pain when swallowing Feeling of food caught in your chest or throat Pain in the neck, chest, or back Heartburn that causes you to vomit Vomiting blood Black or tarry stools (from digested blood) More saliva (watering of the mouth) than usual Weight loss of more than 3% to 5% of your total body weight in a month Hoarseness or sore throat that won?t go away Choking, coughing, or wheezing start repairing her get by taking some [id number] probiotics this will help with your digestive system and make it easier to go to the bathroom. Patient Language: Cymro Prescriptions: New ondansetron 4 mg tablet,disintegrating 4 mg PO Q6H PRN (Reason: nausea and vomiting) Qty: 14 0RF famotidine [Pepcid] 20 mg tablet 20 mg PO DAILY Qty: 30 0RF omeprazole 10 mg capsule,delayed release(DR/EC) 10 mg PO DAILY Qty: 30 0RF No Action spironolactone 50 mg Tablet 150 mg PO DAILY levothyroxine 25 mcg Tablet 25 mcg PO DIRECTED vilazodone 40 mg Tablet 40 mg PO DAILY Rx Instructions: must administer with a meal/food gabapentin 300 mg capsule 600 mg PO TID lamotrigine 200 mg tablet 200 mg PO BID lorazepam 0.5 mg tablet 1 mg PO DAILY propranolol 10 mg tablet 20 mg PO TID trazodone 150 mg tablet 150 mg PO DAILY trihexyphenidyl 2 mg tablet 2 mg PO DAILY hydroxychloroquine [Plaquenil] 200 mg tablet 200 mg PO DAILY Qty: 90 1RF leflunomide 20 mg tablet 20 mg PO DAILY Qty: 30 4RF methocarbamol 750 mg tablet 750 mg PO TID PRN (Reason: muscle spasm) Qty: 90 3RF dicyclomine 20 mg tablet 20 mg PO TID PRN (Reason: abdominal pain) Qty: 30 0RF ziprasidone HCl 80 mg Capsule 80 mg PO BID Rx Instructions: give with food (meal/snack) liothyronine 5 mcg Tablet 5 mcg PO BID cyanocobalamin (vitamin B-12) [Dodex] 1,000 mcg/mL solution 1,000 mcg IM WEEKLY prednisone 2.5 mg tablet 2.5 mg PO DAILY Qty: 40 0RF Rx Instructions: take 2 tabs BID for 5 days, 1 tab BID for 5 days, 1 tab qd for 5 days and then 1 tab qod for 5 doses and stop Follow-up/Referrals: Noah,MD Saul [Primary Care Provider, Unknown] Time of Disposition: 16:28
[2025-04-17 16:02] VITALS: BP 126/48; PULSE 76; RESP 18; TEMP 36.5; O2SAT 98
== END 2025-04-17 16:30 | disposition home or self-care (01) ==
PROVIDERS: Emergency Provider Nurse Practitioner Family; PCP Family Medicine
DX: K21.9 Gastro-esophageal reflux disease without esophagitis (principal); M06.042 Rheumatoid arthritis without rheumatoid factor, left hand; M06.041 Rheumatoid arthritis without rheumatoid factor, right hand; M15.9 Polyosteoarthritis, unspecified; E07.9 Disorder of thyroid, unspecified; F41.9 Anxiety disorder, unspecified; F32.A Depression, unspecified; F17.210 Nicotine dependence, cigarettes, uncomplicated
CPT/HCPCS: 99213; G0463

== ENCOUNTER 2025-05-07 16:20 | Emergency (ER) | payer OTHER, SELFPAY ==
--- OUTSIDE RECORDS SUMMARY | 2001-06-21 05:15 | XMS_ITS | Continuity of Care Document ---
Author Organization [facility] Address [address] [place] [address] [place] [address] Phone Care Team Providers Care Media Relations Specialist Name Role Phone Baldemar Valente DO Unavailable Unavailable Advance Directives Directive Yes / No Effective Date File Name No Information Encounters Encounter Description Practice Location Reason(s) For Visit Diagnoses Date Provider Providers Copied on Encounter [facility], [address], [place], [place], [id number], tel:[phone] [facility] No Information Ambrosio Hernandez. [address] [place], [address], [place]. tel: [phone] Family History Family Member Type Diagnosis Age At Onset No Information Payers Payer name Insurance type Covered libertarian ID Authoriza tibandar(s) [employer] SOI CI [id number] Social History Type Description Quantity Date Captured [...]
--- OUTSIDE RECORDS SUMMARY | 2025-05-07 16:26 | XMS_ITS | Data Portability ---
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 Under sterile conditions I injected both knee joints in the office today with Euflexxa injection 2. These were obtained through the specialty pharmacy by the patient. I will see her back next week for the 3rd injection both knees she voiced understanding agrees above plan she will call for any further problems difficulties or questions. Not available 11/24/2024 14:11:03 12/01/2024 12/01/2024 The patient has mild primary osteoarthritis both knees with chronic pain. Under sterile conditions at her request I injected both knee joints in the office today with Euflexxa injection number 3. The patient tolerated both procedures well. She brought the medication from the specialty pharmacy. I will see her back in 6 months for another round of gel shots if necessary we could do cortisone in between if needed. She voiced understanding and agreed with the above plan she will call for any further problems difficulties or questions. Not available 12/01/2024 14:14:14 12/28/2024 12/28/2024 D/w pt about her findings and further plan of care. Explained pt about different options for pt. Advised pt to f/u with Neuro. Info given to pt. Meds as directed. Cont OTC Benadryl as directed prn. Advised pt to f/u with Ophtho if any vision concerns Or Annually. Educated pt about alarming symptoms to monitor at home and call us back or get checked in ED. F/u as directed. [email or web address] Not available 12/28/2024 15:33:07 04/15/2025 04/15/2025 D/w pt about her findings and further plan of care. Will do x-ray. Samples given to pt. Explained pt about different options for pt. Advised pt to f/u with Neuro. Info given to pt. Meds as directed. Cont OTC Benadryl as directed prn. Advised pt to f/u with Ophtho if any vision concerns Or Annually. Educated pt about alarming symptoms to monitor at home and call us back or get checked in ED. F/u as directed. Not available 04/15/2025 11:24:05 Plan of Treatment Reminders Order Date Submit Date Provider Last Modified By Organization Details Last Modified Time Details Appointments Physical/ Annual Wellness 30 2024 09:30A M Saul Zamora MD Not available Not available Not available Lab None recorded. Referral gastroent erologist referral - Please call patient to schedule an appointme nt. Thank you. 2024 025 [facility], [address], [address], [place], [address], 04/22/2025 14:30:[address] referral - Please call patient to schedule an appointme nt. Thank you. 2024 025 [facility], [address] [place], [address], 04/15/2025 16:55:09 Procedures injection /aspirati on joint/bur sa (PROC) - LOT: [id number], 2024 025 [email or web address] In-Office Order, Internal Use Only DO Not Attach Compendium DO Not Attach Compendium, Do Not Delete/merge, [id number] 12/01/2024 14:06:46 injection /aspirati on joint/bur sa (PROC) - in office procedure , administe red by provider 2024 025 [email or web address] In-Office Order, Internal Use Only DO Not Attach Compendium DO Not Attach Compendium, Do Not Delete/merge, [id number] 11/24/2024 13:44:44 Surgeries None recorded. Imaging XR, cervical spine, 4 or 5 view 2024 [email or web address] [facility], [address], [place] [address], [place], [address], 04/28/2025 15:15:39 Medication Orders pantopraz ole 40 mg tablet,de layed release 2024 [facility] #78452, [address], [place], [id number], 04/21/2025 17:14:59 promethaz ine 25 mg tablet 2024 025 [facility] #31286, [address] [facility], [place], [place], [id number], 05/05/2025 05:02:03 Emgality Pen 120 mg/mL subcutane ous pen injector 2024 025 [email or web address] [facility] #25819, [address] [facility], [place], [place], [id number], 04/21/2025 17:41:02 meloxicam 7.5 mg tablet 2024 025 [facility] #51174, [address], [place], [id number], 04/15/2025 11:15:07 tizanidin e 2 mg tablet 2024 025 [facility] #07767, [address], [place], [id number], 04/15/2025 11:15:10 Qulipta 60 mg tablet 2024 025 [email or web address] [facility] #30202, [address], [place], [place], [id number], 04/27/2025 15:42:00 Ubrelvy 100 mg tablet [email or web address] [place] [address] [facility] #54671, [address], [place], [place], [id number], 04/21/2025 17:45:54 liothyron ine 5 mcg tablet 2024 025 [facility] #14380, [address], [place], [place], [id number], 04/15/2025 11:15:10 fluticaso ne propionat e 50 mcg/actua tion nasal spray,zee pension 2024 025 [facility] #69747, [address], [place], [place], [id number], 04/15/2025 11:14:59 cetirizin e 10 mg tablet 2024 025 [facility] #41017, [address], [place], [place], [id number], 04/15/2025 11:15:12 liothyron ine 5 mcg tablet 2024 025 [facility] #82220, [address], [place], [place], [id number], 12/28/2024 15:11:27 fluticaso ne propionat e 50 mcg/actua tion nasal spray,zee pension 2024 025 [facility] #02257, [address], [place], [place], [id number], 12/28/2024 15:11:21 cetirizin e 10 mg tablet 2024 025 [facility] #17478, [address] [facility], [place], [place], [id number], 12/28/2024 15:11:34 Patient TargetsNo targets recorded. Patient InstructionsNo instructions recorded. Reason for Referral Neurologist Referral for Chr onic headache disorder Please call patient to schedule an appointment. Thank you. Referring Physician: Saul Zamora [facility], Encounter Date: 04/15/2025 County Surveyor Referral for Gastro-esophageal reflux disease with esophagitis Chronic GERD, h/o blood in vomiting and stool ++ Please call patient to schedule an appointment. Thank you. Referring Physician: Saul Zamora [facility], Encounter Date: 04/21/2025 Results Created Date Observation Date Name Description Value Unit Range Abnormal Flag Note LastModifiedBy Organization Detail LastModifiedTime 10/27/1910/26/2024 LDCT, chest , for lung cance r scree keri No observ ation record ed. [email or web address] [facility] [address], [place], [address], 12/28/2024 15:05:26 10/27/19 25 10/26/2024 CT, head + brain , w/wo contr ast No observ ation record ed. [email or web address] [facility] [address], [place], [address], 12/28/2024 15:05:26 10/27/19 25 10/26/2024 CT, head + brain , w/wo contr ast No observ ation record ed. [email or web address] [facility] [address], [place], [address], 12/28/2024 15:05:26 11/18/19 25 XR, knee, 3 view No observ ation record ed. [email or web address] [facility] Venkatesh Pringle [address], [place], [address], 11/17/2024 15:01:47 03/30/20 25 03/29/2025 MAMMO , maria c saavedra, dallin millerl No observ ation record ed. [email or web address] [facility] [address], [place], [address], 04/15/2025 11:06:28 Result Notes None recorded. Problems Name Problem SNOMED Code Status Onset Date Resolution Date Notes Provider Name and Address Organization Details Recorded Time Spinal enthesop athy 53976132 Active Not Available [facility] 3 01:02:13 Obstruct olga sleep apnea of adult 85876478161 03 Active Not Available [facility] 3 01:02:13 Disorder of sacrum 43059718 Completed 01/29/2024 VIRIDIANA Moeller [address], [address], [place], [address] , [employer] 4 11:38:51 Spinal stenosis of lumbar region 28363059 Active Not Available [facility] 3 01:02:13 Lateral epicondy litis 315581561 Completed 01/29/2024 VIRIDIANA Moeller [address], [address], [place], [address] , [employer] 4 11:39:06 Lumbar sprain 732298002 Active Not Available [facility] 3 01:02:14 Biliary sludge 34186682 Completed Not Available [facility] 3 01:02:14 Low back pain 697782088 Completed 01/29/2024 VIRIDIANA Moeller [address], [address], [place], [address] , [employer] 4 11:39:24 Lesion of breast 892030853 Completed Not Available [facility] 3 01:02:15 Chest pain 57847413 Completed Not Available [facility] 3 01:02:15 Vaginiti s 80362890 Completed Not Available [facility] 3 01:02:15 Knee pain Completed Not Available [facility] 3 01:02:15 Depressi ve disorder 04219220 Active Not Available [facility] 3 01:02:15 Sinusiti s 44499840 Completed Saul Zamora MD [address], [address], [place], [address] , [facility] [employer] [facility] 5 11:53:44 Osteoart hritis 373779902 Active Not Available [facility] 3 01:02:16 Complex cyst of breast 731876274 Completed Not Available [facility] 3 01:02:16 Low blood pressure 86486696 Completed Not Available [facility] 3 01:02:17 Anxiety 15052183 Active Not Available [facility] 3 01:02:17 Pain of breast 17183022 Completed Not Available [facility] 3 01:02:17 Hyperlip idemia 54826393 Active Not Available [facility] 3 01:02:17 Alopecia 82634369 Completed Not Available [facility] 3 01:02:18 Derangem ent of knee 78080914 Active Not Available [facility] 3 01:02:18 Muscle pain 00623945 Completed Not Available [facility] 3 01:02:19 Liver cyst 71795083 Completed Not Available [facility] 3 01:02:19 Heart murmur 79896969 Active Not Available [facility] 3 01:02:19 Breast lump 26066771 Completed Not Available [facility] 3 01:02:20 Pain in limb 43783392 Active Not Available [facility] 3 01:02:20 Tobacco user 623259799 Active 2018 Not Available [facility] 3 01:02:13 Weakness of face muscles 43279127 Active 2018 Not Available [facility] 3 01:02:20 Rheumato id arthriti s 93463537 Active 2019 Dr. San Not Available [facility] 3 01:02:19 Acute pharyngi tis 040015237 Completed 202101/29/2024 VIRIDIANA Moeller [address], [address], [place], [address] , [employer] [facility] [employer] [facility] 4 11:38:03 Coating of mucous membrane of tongue 303813264 Completed 202101/29/2024 VIRIDIANA Moeller [address], [address], [place], [address] , [employer] [facility] [employer] [facility] 4 11:38:36 Bilatera l osteoart hritis of knees 90405540285 9107 Active 2021 Not Available [facility] 3 01:02:13 Pain of bilatera l knee joints 37414445875 4104 Active 2021 Not Available [facility] 3 01:02:17 Chronic back pain 521143134 Active 2021 Not Available [facility] 3 01:02:13 Vitamin B12 deficien cy (non anemic) 25423905 Active 2021 Not Available [facility] 3 01:02:18 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 908440040 Active 2021 Not Available [facility] 3 01:02:14 Loss of hair 603757235 Completed 202101/29/2024 VIRIDIANA Moeller [address], [address], [place], [address] , [employer] [facility] [employer] [facility] 4 11:39:21 Hypercal cemia 88650975 Active 2021 Not Available [facility] 3 01:02:18 Headache 48775460 Active 2021 Not Available [facility] 3 01:02:14 Paresthe franco of lower extremit y 897350268 Active 2021 Not Available [facility] 3 01:02:16 Facial paresthe franco 52073734 Active 2021 Not Available [facility] 3 01:02:20 Paresthe franco of upper limb 84939285 Active 2021 Not Available [facility] 3 01:02:21 Pain of right elbow joint 33954464128 428006 Active 2022 Not Available [facility] 3 01:02:13 Lateral epicondy litis of right humerus 18499905040 9107 Completed 202201/29/2024 VIRIDIANA Moeller [address], [address], [place], [address] , [employer] 4 11:39:09 Pain of right knee joint 83097586169 4100 Active 2022 Not Available [facility] 3 01:02:17 Hypothyr oidism 82957600 Active 2022 Danya Mosley MD [address], [address], [place], [address] , [employer] 3 10:16:46 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 843026734 Active 2022 Danya Mosley MD [address], [address], [place], [address] , [employer] 3 15:11:34 Atypical chest pain 413412402 Completed 202201/29/2024 VIRIDIANA Moeller [address], [address], [place], [address] , [employer] 4 11:38:23 Colitis 74003563 Completed 202201/29/2024 VIRIDIANA Moeller [address], [address], [place], [address] , [employer] 4 11:38:47 Left lower quadrant pain 378835208 Completed 202201/29/2024 VIRIDIANA Moeller [address], [address], [place], [address] , [place] [facility] 4 11:39:15 Herpes zoster 7326079 Active 2022 Isis Pruitt NP [address], [address], [place], [address] , [place] [facility] 3 11:52:28 Bacteria l vaginosi s 839629756 Completed 202201/29/2024 VIRIDIANA Moeller [address], [address], [place], [address] , [place] [facility] 4 11:38:32 Chronic chest pain 98539880441 4101 Active 2023 VIRIDIANA Moeller [address], [address], [place], [address] , [place] [facility] 4 11:47:33 Chronic headache disorder 893575408 Active 2024 Saul Zamora MD [address], [address], [place], [address] , [place] [facility] 5 11:49:30 Seasonal allergic rhinitis 582185998 Active 2024 Saul Zamora MD [address], [address], [place], [address] , [place] [facility] 5 11:49:41 Bipolar disorder 60777419 Active 2024 Saul Zamora MD [address], [address], [place], [address] , [place] [facility] 5 11:49:55 Anxiety disorder 974239061 Active 2024 Saul Zamora MD [address], [address], [place], [address] , [place] [facility] 5 11:50:03 Cigarett e smoker 72647190 Active 2024 Saul Zamora MD [address], [address], [place], [address] , [facility] [employer] [facility] 5 11:50:13 Sinusiti s 78468095 Active 2024 Saul Zamora MD [address], [address], [place], [address] , [facility] 5 11:53:43 Chronic neck pain 70114621674 07 Active 2024 Saul Zamora MD [address], [address], [place], [address] , [facility] 5 11:12:37 Chronic intracta ble migraine without aura 69860652734 9105 Active 2024 Saul Zamora MD [address], [address], [place], [address] , [facility] 5 09:39:26 Nausea and vomiting 33440982 Active 2024 Saul Zamora MD [address], [address], [place], [address] , [facility] 5 17:11:36 Gastro-e sophagea l reflux disease with esophagi tis 120032731 Active 2024 Saul Zamora MD [address], [place], [address] , [facility] 5 17:13:00 Problem Notes None recorded. Procedures Surgical History Date Name Laterality Status Provider Name and Address Organization Details Recorded Time 03/12/20 23 Date of Last Colonoscopy completed Isis Pruitt NP [address], [address], [place], [address], [facility] [employer] [facility] 03/19/2023 15:19:54 07/31/20 22 Most Recent Mammogram completed Isis Johnson RN [facility] [employer] [facility] 01/15/2023 16:07:03 Breast Surgery completed Not Available [facility] 10/10/2022 00:48:09 Imaging Results None recorded. Procedure Notes None recorded. Medical Equipment None Reported. Allergies Allergen ID Allergen Name Allergen Category Reaction Reaction Severity Criticality Documentation Date Start Date Code Code System Note Provider Name and Address Organization Details Recorded Time 2095 Wellbutri n medicatio n headache Not available Not available 10/10/2022 31015 RxNorm Not Available [facility] 3 01:21:14 2096 amitripty line medicatio n Not available Not available Not available 10/10/2022 704 RxNorm bloat ing Not Available [facility] 3 01:21:14 Medications Name Sig Start Date Stop Date Status Note LastModified by Organization Details LastModified Time insulin syringe 31g x 5/16 1 ml mi insulin syringe 31g x 5/16 1 ml mi sc 01/28 completed Not Available Not Available Not Available Prescript ion - Prior Authoriza tion Request active Not Available Not Available Not Available relion insulin syringe 31g x 5/16 relion insulin syringe 31g x 5/16 1 ml misc 01/28 completed Not Available Not Available Not Available insulin syringe/u -100/1ml/ 31g x 5/1 6 31g x 5/16 1 ml misc active Not Available Not Available Not Available fluoxetin e 40 mg capsule Take 1 capsule every day by oral route. 07/15 completed Not Available Not Available Not Available cyclobenz aprine 10 mg tablet TAKE 1 TABLET BY MOUTH THREE TIMES DAILY NEEDED FOR MUSCLE SPASM 06/19 completed Not Available Not Available Not Available ziprasido ne 80 mg capsule TAKE 1 CAPSULE BY MOUTH TWICE DAILY 10/08 completed Not Available Not Available Not Available amoxicill in 500 mg capsule TAKE 1 CAPSULE BY MOUTH THREE TIMES DAILY FOR 10 DAYS DIRECTED 09/26 completed Not Available Not Available Not Available lamotrigi ne 150 mg tablet active Not Available Not Available Not Available metformin 500 mg tablet TAKE 1 TABLET BY MOUTH DAILY WITH BREAKFAS T 11/17 completed Not Available Not Available Not Available prednison e 10 mg tablet Take 1 tablet every day by oral route as directed for 7 days. 11/17 completed Not Available Not Available Not Available venlafaxi ne ER 75 mg capsule,e xtended release 24 hr TK 1 C PO QD active Not Available Not Available No t Available gabapenti n 600 mg tablet TAKE 1 TABLET BY MOUTH THREE TIMES DAILY 04/15 completed Not Available Not Available Not Available lamotrigi ne 200 mg tablet TAKE 1 TABLET BY MOUTH EVERY DAY 10/08 completed Not Available Not Available Not Available tizanidin e 2 mg tablet TAKE 1 TABLET BY MOUTH EVERY 12 HOURS NEEDED active Not Available Not Available No t Available clindamyc in HCl 300 mg capsule TK ONE C PO QID active Not Available Not Available No t Available trazodone 50 mg tablet (TK 2 TO 3 TS PO QHS active Not Available Not Available No t Available cetirizin e 10 mg tablet TAKE 1 TABLET BY MOUTH EVERY DAY DIRECTED active Not Available Not Available No t Available azithromy kami 250 mg tablet Take 2 TABLET EVERY DAY by oral route for 1 day and then one tablet daily for 4 more days active Not Available Not Available No t Available Lidocaine Viscous 2 % mucosal solution 05/26 completed Not Available Not Available Not Available fluconazo le 150 mg tablet TK 1 T PO QD FOR 1 DAY 06/20 completed Not Available Not Available Not Available benzonata te 200 mg capsule Take 1 capsule every 8 hours by oral route as needed for 10 days. active Not Available Not Available No t Available valacyclo vir 1 gram tablet TAKE 1 TABLET BY MOUTH EVERY 12 HOURS FOR 10 DAYS 05/13 completed Not Available Not Available Not Available hydrocodo ne 5 mg-acetam inophen 325 mg tablet active Not Available Not Available Not Available meloxicam 15 mg tablet TK 1 T PO QD 04/28 completed Not Available Not Available Not Available metronida zole 0.75 % (37.5 mg/5 gram) vaginal gel INSERT 1 APPLICAT ORFUL VAGINALL Y EVERY DAY AT BEDTIME FOR 5 DAYS 01/28 completed Not Available Not Available Not Available ondansetr on HCl 4 mg tablet 11/23 completed Not Available Not Available Not Available Medrol (Patrice) 4 mg tablets in a dose pack Take 1 dose pk every day by oral route as directed for 6 days. 12/10 completed Not Available Not Available Not Available bupivacai ne HCl 0.5 % (5 mg/mL) injection solution in office 01/28 completed Not Available Not Available Not Available clonazepa m 0.5 mg tablet TK 1 T PO QHS 07/15 completed Not Available Not Available Not Available rizatript an 10 mg tablet TAKE 1 TABLET BY MOUTH EVERY DAY NEEDED active Not Available Not Available No t Available propranol ol ER 60 mg capsule,2 4 hr,extend ed release TAKE 1 CAPSULE BY MOUTH DAILY 04/21 completed Not Available Not Available Not Available sertralin e 100 mg tablet TAKE 1 TABLET BY MOUTH IN THE MORNING AND THEN TAKE 1/2 (ONE-DARLINE F) TABLET IN THE EVENING 06/19 completed Not Available Not Available Not Available olanzapin e 5 mg tablet TAKE 1 TABLET BY MOUTH EVERY NIGHT AT BEDTIME ON WEEK 1 THEN TAKE 2 TABLETS BY MOUTH EVERY NIGHT AT BEDTIME 10/08 completed Not Available Not Available Not Available venlafaxi ne ER 150 mg capsule,e xtended release 24 hr TK ONE C PO ONCE D 11/23 completed Not Available Not Available Not Available olanzapin e 10 mg tablet TAKE 1 TABLET BY MOUTH DAILY active Not Available Not Available No t Available topiramat e 25 mg tablet TAKE 1 TABLET BY MOUTH EVERY EVENING active Not Available Not Available No t Available metronida zole 500 mg tablet TAKE 1 TABLET BY MOUTH TWICE DAILY FOR 7 DAYS 04/15 completed Not Available Not Available Not Available acetamino phen 300 mg-codein e 30 mg tablet TK 1 TO 2 T PO EVERY 6 H PRN active Not Available Not Available No t Available Aspir-Low 81 mg tablet,de layed release Take 1 tablet every day by oral route. 10/17 completed Not Available Not Available Not Available ciproflox acin 500 mg tablet TAKE 1 TABLET BY MOUTH EVERY 12 HOURS FOR 5 DAYS 01/25 completed Not Available Not Available Not Available Tamiflu 75 mg capsule TK 1 C PO D FOR 10 DAYS active Not Available Not Available No t Available liothyron ine 5 mcg tablet TAKE 2 TABLETS BY MOUTH TWICE DAILY active Not Available Not Available No t Available leflunomi de 20 mg tablet TAKE 1 TABLET BY MOUTH DAILY active Not Available Not Available No t Available tramadol 50 mg tablet Take 1 tablet twice a day by oral route as needed. active Not Available Not Available No t Available bupropion HCl SR 100 mg tablet,12 hr sustained -release active Not Available Not Available Not Available amoxicill in 500 mg tablet Take 1 tablet 3 times a day by oral route as directed for 10 days. 09/26 completed Not Available Not Available Not Available levothyro xine 25 mcg tablet TAKE 1 TABLET BY MOUTH EVERY DAY 05/13 completed Not Available Not Available Not Available levothyro xine 75 mcg tablet active Not Available Not Available Not Available prednison e 10 mg tablets in a dose pack Take 1 tab by mouth, 3 times a day for 3 daysTake 1 tab by mouth 2 times a day for 2 daysTake 1 tab by mouth once a day for 1 day 01/28 completed Not Available Not Available Not Available meloxicam 7.5 mg tablet TAKE 1 TABLET BY MOUTH EVERY DAY DIRECTED active Not Available Not Available No t Available alprazola m 0.5 mg tablet Take 1 tablet 3 times a day by oral route as directed for 30 days. active Not Available Not Available No t Available propranol ol 10 mg tablet Take by oral route. 03/20 completed Not Available Not Available Not Available amoxicill in 875 mg tablet TK 1 T PO BID active Not Available Not Available No t Available alprazola m 0.25 mg tablet TK 3 TS PO ONCE D PRF ANXIETY active Not Available Not Available No t Available ziprasido ne 20 mg capsule TAKE 1 CAPSULE BY MOUTH TWICE DAILY 10/17 completed Not Available Not Available Not Available famotidin e 20 mg tablet TAKE 1 TABLET BY MOUTH DAILY active Not Available Not Available No t Available omeprazol e 10 mg capsule,d elayed release TAKE 1 CAPSULE BY MOUTH DAILY active Not Available Not Available No t Available lorazepam 0.5 mg tablet TK 2 TS PO BID PRN active Not Available Not Available No t Available metoclopr amide 5 mg tablet Take 1 tablet every 6 hours by oral route as needed for 10 days. 01/23 completed To be used in conjunct ion with her rizatrip tin and aspirin for headache s. Not Available Not Available Not Available methocarb lucía 750 mg tablet TAKE 1 TABLET BY MOUTH THREE TIMES DAILY active Not Available Not Available No t Available methotrex ate sodium 2.5 mg tablet TAKE 5 TABLETS BY MOUTH WEEKLY active Not Available Not Available No t Available oxycodone -acetamin ophen 10 mg-325 mg tablet TK 1 T PO Q 6 H PRN P active Not Available Not Available No t Available dicyclomi ne 20 mg tablet TAKE 1 TABLET BY MOUTH THREE TIMES DAILY NEEDED FOR ABDOMINA L PAIN 01/28 completed Not Available Not Available Not Available Kenalog 10 mg/mL suspensio n for injection in office 01/28 completed [facility]: [phone] 11-29 Not Available Not Available Not Available benzonata te 100 mg capsule Take 1 capsule 3 times a day by oral route as needed. active Not Available Not Available No t Available levothyro xine 50 mcg tablet TAKE 1 TABLET BY MOUTH EVERY DAY active Not Available Not Available No t Available prednison e 2.5 mg tablet 01/28 completed Not Available Not Available Not Available pantopraz ole 40 mg tablet,de layed release TAKE 1 TABLET BY MOUTH EVERY DAY IN THE MORNING active Not Available Not Available No t Available cyanocoba ghazal (vit B-12) 1,000 mcg/mL injection solution INJECT 1 ML ONCE A WEEK DIRECTED 11/17 completed Not Available Not Available Not Available trazodone 150 mg tablet TAKE 1 AND 1/2 TABLETS BY MOUTH EVERY NIGHT AT BEDTIME active Not Available Not Available No t Available metformin 1,000 mg tablet TAKE 1 TABLET BY MOUTH DAILY WITH BREAKFAS T active Not Available Not Available No t Available neomycin- polymyxin -dexameth 3.5 mg/mL-10, 000 unit/mL-0 .1% eye drops INSTILL 1 DROP IN LEFT EYE QID 11/19 completed Not Available Not Available Not Available prednison e 50 mg tablet TK 1 T PO D 05/26 completed Not Available Not Available Not Available promethaz ine 25 mg tablet Take 1 tablet every 6-8 hours by oral route as needed for 7 days. 05/05 completed Not Available Not Available Not Available fluoxetin e 10 mg capsule 03/07 completed Not Available Not Available Not Available pramipexo le 0.125 mg tablet TAKE 1 TABLET BY MOUTH DAILY AT BEDTIME 2 TO 3 HOURS BEFORE SLEEP FOR RESTLESS LEG SYNDROME active Not Available Not Available No t Available gabapenti n 300 mg capsule TAKE 1 CAPSULE BY MOUTH THREE TIMES DAILY WITH FOOD active Not Available Not Available No t Available diclofena c sodium 75 mg tablet,de layed release TAKE 1 TABLET BY MOUTH TWICE DAILY 11/29 completed Not Available Not Available Not Available folic acid 1 mg tablet TAKE 1 TABLET BY MOUTH EVERY DAY IN THE MORNING active Not Available Not Available No t Available hydrocodo ne 5 mg-acetam inophen 500 mg tablet active Not Available Not Available Not Available acetamino phen 300 mg-codein e 60 mg tablet active Not Available Not Available Not Available diclofena c sodium 50 mg tablet,de layed release active Not Available Not Available Not Available ziprasido ne 40 mg capsule ON WEEKS 3 AND 4 TAKE 1 CAPSULE BY MOUTH TWICE DAILY THE STOP 11/17 completed Not Available Not Available Not Available mirtazapi ne 15 mg tablet 05/26 completed Not Available Not Available Not Available clozapine 25 mg tablet TAKE PER ATTACHED DIRECTIO N SHEET active Not Available Not Available No t Available lorazepam 1 mg tablet TAKE 1 TABLET BY MOUTH NEEDED . UP TO ONCE A DAY active Not Available Not Available No t Available hydroxych loroquine 200 mg tablet TAKE 1 TABLET BY MOUTH DAILY active Not Available Not Available No t Available cefuroxim e axetil 500 mg tablet 11/23 completed Not Available Not Available Not Available oxycodone -acetamin ophen 7.5 mg-325 mg tablet 04/22 completed weaning - down to 1 po daily Not Available Not Available Not Available trihexyph enidyl 2 mg tablet TAKE 1 TABLET BY MOUTH EVERY DAY active Not Available Not Available No t Available propranol ol 20 mg tablet TAKE 1 TABLET BY MOUTH THREE TIMES DAILY active Not Available Not Available No t Available celecoxib 100 mg capsule TAKE 1 CAPSULE BY MOUTH TWICE DAILY active Not Available Not Available No t Available ziprasido ne 60 mg capsule TAKE 1 CAPSULE BY MOUTH TWICE DAILY 06/19 completed Not Available Not Available Not Available ondansetr on 4 mg disintegr ating tablet DISSOLVE 1 TABLET ON THE TONGUE EVERY 6 HOURS NEEDED FOR NAUSEA OR VOMITING active Not Available Not Available No t Available fluoxetin e 20 mg capsule TK 2 CS PO QAM 11/21 completed Not Available Not Available Not Available fluticaso ne propionat e 50 mcg/actua tion nasal spray,zee pension INSTILL 2 SPRAYS IEN D 2024 active Not Available Not Available Not Avai lable sertralin e 50 mg tablet TK 1 T PO QAM active Not Available Not Available No t Available risperido ne 1 mg tablet TAKE 1 TABLET BY MOUTH EVERY MORNING AND 2 TABLETS BY MOUTH AT BEDTIME 10/17 completed Not Available Not Available Not Available lamotrigi ne 100 mg tablet TAKE 1 TABLET BY MOUTH EVERY MORNING AND 2 TABLETS EVERY NIGHT AT BEDTIME active Not Available Not Available No t Available naproxen 500 mg tablet active Not Available Not Available Not Available spironola ctone 50 mg tablet TAKE 3 TABLETS BY MOUTH DAILY 2024 active Not Available Not Available Not Avai lable diazepam 5 mg tablet Take 1 tablet every day by oral route for [address] Marlen ibarra es Not Available Not Available Not Available amoxicill in 875 mg-potass ium clavulana te 125 mg tablet TAKE 1 TABLET BY MOUTH TWICE DAILY 11/17 completed Not Available Not Available Not Available amoxicill in 500 mg-potass ium clavulana te 125 mg tablet TK 1 T PO Q 12 H 02/20 completed Not Available Not Available Not Available escitalop osmel 20 mg tablet active Not Available Not Available Not Available aripipraz ole 10 mg tablet TAKE 1 TABLET BY MOUTH EVERY DAY 06/19 completed Not Available Not Available Not Available aripipraz ole 15 mg tablet 10/17 completed Not Available Not Available Not Available Prempro 0.3 mg-1.5 mg tablet Take 1 tablet every day by oral route in the morning for 30 days. 05/26 completed Not Available Not Available Not Available clozapine 100 mg disintegr ating tablet DISSOLVE ONE TABLET ON THE TONGUE EVERY DAY AND 1 TABLET EVERY NIGHT AT BEDTIME active Not Available Not Available No t Available nitrofura ntoin monohydra te/macroc rystals 100 mg capsule TK 1 C PO Q 12 H FOR 7 DAYS 11/19 completed Not Available Not Available Not Available duloxetin e 30 mg capsule,d elayed release TK 1 C PO QD ALONG WITH 60 MG 07/15 completed Not Available Not Available Not Available duloxetin e 60 mg capsule,d elayed release TK 1 C PO QD 07/15 completed Not Available Not Available Not Available pregabali n 75 mg capsule TAKE 1 CAPSULE TWICE DAILY 04/15 completed Not Available Not Available Not Available Euflexxa 10 mg/mL (mw 2.4-3.6 million) intra-art icular syringe Inject 2 mL by intra-ar ticular route as directed for 21 days, for bilatera l knee osteoart hritis. 03/13/ 2025 04/08 /2025 completed Not Available Not Available Not Available Easy Touch Insulin Syringe 1 mL 31 gauge x 12/25 USE WITH B12 INJECTIO NS WEEKLY DIRECTED 11/17 completed Not Available Not Available Not Available paliperid one ER 3 mg tablet,ex tended release 24 hr TAKE 1 TABLET BY MOUTH EVERY MORNING. SWALLOW WHOLE active Not Available Not Available No t Available estradiol -norethin drone acet 0.5 mg-0.1 mg tablet TAKE 1 TABLET BY MOUTH ONCE DAILY IN THE MORNING 02/19 completed Not Available Not Available Not Available Nucynta 50 mg tablet TK 1 T PO Q 4 TO 6 H PRN. active Not Available Not Available No t Available asenapine 5 mg sublingua l tablet DISSOLVE 1 TABLET UNDER THE TONGUE ONCE DAILY IN THE EVENING FOR 2 DAYS, THEN 1 TABLET TWICE DAILY. 12/10 completed Not Available Not Available Not Available asenapine 10 mg sublingua l tablet DISSOLVE 1 TABLET UNDER THE TONGUE TWICE DAILY 11/29 completed Not Available Not Available Not Available liragluti de 0.6 mg/0.1 mL (18 mg/3 mL) subcutane ous pen injector INJECT 0.6MG UNDER THE SKIN DAILY active Not Available Not Available No t Available Latuda 40 mg tablet 06/15 completed Not Available Not Available Not Available Latuda 80 mg tablet TAKE 1 TABLET BY MOUTH ONCE DAILY FOR 30 DAYS 06/19 completed Not Available Not Available Not Available vilazodon e 40 mg tablet TAKE 1 TABLET BY MOUTH TWICE DAILY WITH FOOD active Not Available Not Available No t Available ropivacai ne (PF) 5 mg/mL (0.5 %) injection solution in office 01/28 completed [facility] [id number] 4- Not Available Not Available Not Available Movantik 25 mg tablet 03/21 completed Not Available Not Available Not Available Rexulti 3 mg tablet TAKE 1 TABLET BY MOUTH EVERY DAY active Not Available Not Available No t Available Rexulti 1 mg tablet active Not Available Not Available No t Available Rexulti 0.5 mg tablet TAKE 1 TABLET BY MOUTH EVERY DAY FOR WEEK 1 active Not Available Not Available No t Available Oxaydo 7.5 mg tablet,or al ONLY (not for feeding tubes) TK ONE T PO QOD 05/27 completed Not Available Not Available Not Available Emgality Pen 120 mg/mL subcutane ous pen injector ADMINIST ER 1 ML UNDER THE SKIN EVERY MONTH DIRECTED active Not Available Not Available No t Available Ubrelvy 100 mg tablet TAKE 1 TABLET BY MOUTH EVERY 72 HOURS NEEDED 04/21 completed PA not approved by insuranc e Not Available Not Available Not Available Qulipta 60 mg tablet TAKE 1 TABLET BY MOUTH EVERY DAY DIRECTED active Not Available Not Available No t Available Zavzpret 10 mg/actuat ion nasal spray Take by nasal route for 30 days. active Not Available Not Available No t Available Vitals Date Recorded Body height Body mass index (BMI) Body weight Provider Name and Address Organization Details Last Updated DateTime 11/24/2024 154.94 cm 24.4 kg/m2 92831.42 g Lelia Velasquez CNA [facility] [employer] [facility] 11/24/2024 13:43:37 Date Recorded Body height Body mass index (BMI) Body weight Provider Name and Address Organization Details Last Updated DateTime 12/01/2024 154.94 cm 24.4 kg/m2 20593.42 g PER Aviles [facility] [employer] [facility] 12/01/2024 14:05:27 Date Recorded Body height Body mass index (BMI) Body weight Body temperature Oxygen saturation Oxygen saturation in Arterial blood by Pulse oximetry Heart rate Systolic And Diastolic Provider Name and Address Organization Details Last Updated DateTime 5 154.94 cm 24.8 kg/m2 02321 g 97.5 [degF] 95 % 95 % 88 /min 140/72 mm[Hg] Chayito Orellana RN [facility] [employer] [facility] 5 15:03:57 Date Recorded Body height Body mass index (BMI) Body weight Body temperature Oxygen saturation Oxygen saturation in Arterial blood by Pulse oximetry Heart rate Systolic And Diastolic Provider Name and Address Organization Details Last Updated DateTime 5 154.94 cm 22.7 kg/m2 76964.4 3 g 97.3 [degF] 96 % 96 % 72 /min 130/70 mm[Hg] Chayito Orellana RN [facility] [employer] [facility] 5 11:01:09 Date Recorded Body height Body mass index (BMI) Body weight Body temperature Oxygen saturation Oxygen saturation in Arterial blood by Pulse oximetry Heart rate Systolic And Diastolic Provider Name and Address Organization Details Last Updated DateTime 5 154.94 cm 22.6 kg/m2 16006.5 9 g 97.5 [degF] 97 % 97 % 82 /min 130/70 mm[Hg] Chayito Orellana RN [place] - [facility] [place] 5 17:06:54 Social History Question Answer Notes LastModified by Organization Details LastModified Time Tobacco Smoking Status Current Every Day Smoker Not Available [facility] 10/10/2022 00:45:35 Do You Have An Advance Directive? No [id number] Information not available 10/10/2022 Is Blood Transfusion Acceptable In An Emergency? Yes Information not available 01/15/2023 What Is Your Level Of Caffeine Consumption? Heavy 8 To 10 Cups Of Coffee/day 6 Or 7 Glasses Of Tea/day [email or web address] Information not available 04/15/2025 What Is Your Code Status? Full Code Information not available 01/15/2023 In The 14 Days Before Symptom Onset, Have You Had Close Contact With A Laboratory-conf irmed COVID-19 While That Case Was Ill? No [id number] Information not available 10/10/2022 In The 14 Days Before Symptom Onset, Have You Had Close Contact With A Person Who Is Under Investigation For COVID-19 While That Person Was Ill? No [id number].[id number] [id number] Information not available 10/10/2022 What Type Of Diet Are You Following? REGULAR MIGRATION.0301 [id number] Information not available 10/10/2022 Which Illicit Or Recreational Drugs Have You Used? None MIGRATION.[id number] [id number] Information not available 10/10/2022 Have There Been Any Changes To Your Family Or Social Situation? No MIGRATION.0301 [id number] Information not available 10/10/2022 Do You Use Insect Repellent Routinely? No MIGRATION.0301 [id number] Information not available 10/10/2022 Where Do You Live? SingleLevelHouse Information not available 01/15/2023 Do You Have A Medical Power Of Cooking Instructor? No MIGRATION.[id number] [id number] Information not available 10/10/2022 How Many Children Do You Have? 2 Information not available 01/29/2024 What Is Your Current Pack Years? 30ormorepackyears [email or web address] Information not available 04/15/2025 Do You Have Any Pets? Yes MIGRATION.0301 [id number] Information not available 10/10/2022 What Is Your Relationship Status? MIGRATION.0301 [id number] Information not available 10/10/2022 Do You Use Your Seat Belt Or Car Seat Routinely? Yes MIGRATION.0301 [id number] Information not available 10/10/2022 Do You Have Smoke And Carbon Monoxide Detectors In Your Home? Yes MIGRATION.0301 [id number] Information not available 10/10/2022 At What Age Did You Start Smoking Tobacco? 28 Information not available 01/29/2024 Are There Any Smokers In Your House? Yes MIGRATION.0301 [id number] Information not available 10/10/2022 How Much Tobacco Do You Smoke? 1 PPD 14 Cigerettes Information not available 01/29/2024 Do You Participate In Social Media? No MIGRATION.0301 [id number] Information not available 10/10/2022 Do You Use Sunscreen Routinely? No MIGRATION.0301 [id number] Information not available 10/10/2022 Has Tobacco Cessation Counseling Been Provided? No MIGRATION.0301 046213 Information not available 10/10/2022 How Many Years Have You Smoked Tobacco? 31 [email or web address] Information not available 04/15/2025 Have You Recently Traveled Abroad? No MIGRATION.0301 [id number] Information not available 10/10/2022 Do You Have Any Dietary Restrictions? No MIGRATION.0301 [id number] Information not available 10/10/2022 Sex: Female Functional Status Question Answer Note LastModified by Organizat ion Details LastModified Time Do you use any illicit or recreational drugs? No MIGRATION.[id number] Information not available 10/10/2022 Do you or have you ever used any other forms of tobacco or nicotine? No MIGRATION.[id number] Information not available 10/10/2022 What is your level of alcohol consumption? None MIGRATION.[id number] Information not available 10/10/2022 Do you or have you ever used smokeless tobacco? Never used smokeless tobacco MIGRATION.217132 5420 Information not available 10/10/2022 Are you currently employed? No Information not available 01/15/2023 What is your occupation? Disabled MIGRATION.[id number] [id number] Information not available 10/10/2022 Do you or have you ever used e-cigarettes or vape? Never used electronic cigarettes MIGRATION.[id number] 8584 Information not available 10/10/2022 What is your exercise level? None Information not available 01/15/2023 Mental Status Question Answer Note LastModified by Organizat ion Details LastModified Time Do you feel stressed (tense, restless, nervous, or anxious, or unable to sleep at night)? [id number] Information not available 10/10/2022 Family History Relationship Description Onset Age of this Age Resolved Age Notes LastModified by Organization Details LastModified Time Mother Diabetes mellitus MIGRATION.644 [id number] Not available 10/10/2022 00:48:14 Mother Heart disease MIGRATION.317 [id number] Not available 10/10/2022 00:48:14 Sister Diabetes mellitus MIGRATION.692 [id number] Not available 10/10/2022 00:48:14 Sister Hypertensive disorder MIGRATION.095 [id number] Not available 10/10/2022 00:48:14 Father Diabetes mellitus MIGRATION.787 [id number] Not available 10/10/2022 00:48:14 Maternal Grandfather Family history of stroke [email or web address] Not available 03/2025 14:33:56 Father Kidney disease [email or web address] Not available 03/2025 14:34:08 Medical History Condition Response BLINDNESS N RHEUMATIC FEVER N KIDNEY STONES N BLADDER PROBLEMS N MRSA N OTHER # 1 N POLIO N LUNG DISEASE/DISORDER N HISTORY OF DRUG ABUSE N RADIATION / CHEMOTHERAPY N COPD N Other # 2 N BLOOD DISEASES N SURGERY N EAR OR HEARING PROBLEMS N MUMPS N SHINGLES N BOWEL PROBLEMS N FEMALE PROBLEMS / INFECTIONS N DEPRESSION (INCLUDING POST ) Y STROKE/TIA N THYROID DISEASE N ULCERS N BENIGN PROSTATIC HYPERPLASIA N MEASLES N CERVICALGIA N HYPOTENSION N TB SKIN TEST N MYOCARDIAL INFARCTION N PARAPELGIA N OBESITY N GERD/NAUSEA Y ANEURYSM N URINARY/BLADDER/KIDNEY PROBLEMS N CORONARY ARTERY DISEASE (CAD) N MENIERE'S DISEASE N ADDICTION CONCERNS N ENDOMETRIOSIS N USE OF BLOOD THINNERS N SKIN PROBLEMS N EMPHYSEMA N MUSCLE,JOINT OR BONE PROBLEMS N GASTROINTESTINAL BLEEDING N BLOOD CLOTS N ASTHMA N CATARACTS N ERECTILE DYSFUNCTION N GI PROBLEMS Y CHF N Low Testosterone N NEUROPATHY N INFERTILITY N AIDS/HIV N FRACTURES N CHEMOTHERAPY / RADIATION N VISION/EYE PROBLEMS N LIVER DISEASE N MALE HYPOGONADISM N HYPERTENSION N TOURETTE'S N ANXIETY DISORDER Y BLOOD TRANSFUSION N ANEMIA/BLOOD DISORDER N CHRONIC EAR INFECTIONS N BRONCHITIS N TUBERCULOSIS N GLAUCOMA N FOOT PROBLEM N DIVERTICULITIS N CHICKENPOX N SLEEP APNEA N ALLERGIES/HAYFEVER N INFECTIOUS DISEASE N HEART ARRHYTHMIA N PROSTATE N INSOMNIA N HIGH CHOLESTEROL / HYPERLIPIDEMIA Y HYPERTHYROIDISM Y EYE PROBLEMS N EATING DISORDER N EDEMA N CHRONIC PAIN SYNDROME N CONSTIPATION N CAROTID BLOCKAGE N BACK / NECK PROBLEMS N HAVE YOU BEEN HOSPITALIZED OR SEEN IN [facility] ER IN THE PAST YEAR ? N ATHEROSCLEROSIS N BREAST PROBLEMS N DIALYSIS N ECZEMA N FIBROMYALGIA N OSTEOPOROSIS Y ARTHRITIS Y NO SIGNIFICANT PAST MEDICAL HISTORY N APPENDICITIS N DIABETES, TYPE Y BAD TEETH N HEARTBURN / REFLUX Y ADD/ADHD N AUTISM SPECTRUM DISORDER (ASD) N HEPATITIS / LIVER DISEASE N PULMONARY DISEASE N GOUT N SLEEP DISORDER N ALZHEIMER'S DISEASE N PAIN N HERPES N DEMENTIA N HEADACHES/MIGRAINES N SEIZURES/EPILEPSY N VASCULAR DISEASE N PACEMAKER N DIZZINESS N HEART DISEASE/HEART PROBLEMS N KIDNEY DISEASE N DEVELOPMENTAL OR BEHAVIORAL DISORDERS N MULTIPLE SCLEROSIS N SCARLET FEVER N MENTAL DISORDER/ILLNESS N CARDIAC ARRHYTHMIA N CANCER: SPECIFY N PNEUMONIA N ATRIAL FIBRILLATION N Gall Stones N PULMONARY EMBOLISM N AUTOIMMUNE DISEASE N Gynecological History Statement/Question Response Date of Last Mammogram 08/10/2022 Date of Last Colonoscopy 03/12/2023 Most Recent Bone Density Date of LMP Date of Last Pap 12/30/2020 Colposcopy Date of Last Pap Smear Most Recent Mammogram 07/31/2022 Obstetrics History GPAL:G 0 P 0 0 0 0 Immunizations Vaccine Type Date Status Note Provider Nam e and Address Organization Details Recorded Time COVID-19 Non-US Vaccine, UNSPECIFIED 1 completed Not Available [facility] 10/10/2022 01:20:45 COVID-19, mRNA, LNP-S, PF, 100 mcg/0.5mL dose or 50 mcg/0.25mL dose 1 completed Not Available [facility] 10/10/2022 01:20:46 Tdap 6 completed Not Available [facility] 10/10/2022 01:20:46 Tdap 1 completed Not Available [facility] 10/10/2022 01:20:46 Influenza, split virus, quadrivalent, PF 6 completed Not Available [facility] 10/10/2022 01:20:46 Past Encounters Encounter ID Performer Location Encounter Start Date Encounter Closed Date Diagnosis/Indication Diagnosis SNOMED-CT Code Diagnosis ICD10 Code Diagnosis IMO Codes Diagnosis Note [id number] Danya Mosley MD [facility] [place] [facility] [address] [place] [address] 10/17/2020 00:00:00 10/17/2020 15:26:24 [id number] Saul Zamora MD [facility] [place] [address] [place] [address] 12/29/2020 00:00:00 12/29/2020 14:38:28 [id number] Saul Zamora MD [facility] [place] [address] [place] [address] 04/14/2021 00:00:00 04/14/2021 15:14:23 [id number] Saul Zamora MD [facility] [address] [place] [address] 05/11/2021 00:00:00 05/11/2021 15:10:21 [id number] Danya Mosley MD [facility] [place] [facility] [address] [place] [address] 05/15/2021 00:00:00 05/15/2021 17:39:22 [id number] Saul Zamora MD [facility] [place] [address] [place] [address] 06/14/2021 00:00:00 06/14/2021 17:51:52 [id number] Danya Mosley MD [facility] [place] [facility] [address] [place] [address] 08/14/2021 00:00:00 08/14/2021 15:28:26 [id number] Saul Zamora MD [facility] [place] [address] [place] [address] 09/18/2021 00:00:00 09/18/2021 14:01:25 [id number] Danya Mosley MD [facility] [place] [facility] [address] [place] [address] 09/26/2021 00:00:00 09/26/2021 16:13:13 [id number] Saul Zamora MD [facility] [address] [address] 10/06/2021 00:00:00 10/06/2021 09:48:07 [id number] Saul Zamora MD [facility] [address] [address] 10/31/2021 00:00:00 10/31/2021 17:47:12 [id number] Wild Dyer MD [facility] [address] [place] [address] 11/29/2021 00:00:00 11/29/2021 12:37:47 [id number] Danya Mosley MD [facility] [place] [address] [place] [address] 12/22/2021 00:00:00 02/17/2022 13:25:25 [id number] [facility] [place] [facility] [address] [place] [address] 03/20/2022 00:00:00 03/20/2022 17:57:18 [id number] [facility] [address] [place] [address] 06/15/2022 00:00:00 06/15/2022 14:11:57 [id number] Saul Zamora MD [facility] [address] [address] 06/19/2022 00:00:00 06/19/2022 18:02:19 [id number] Wild Dyer MD [facility] [address] [place] [address] 10/09/2022 00:00:00 10/09/2022 16:41:01 [id number] Danya Mosley MD [facility] [address] [place] [address] 12/10/2022 14:39:28 12/10/2022 15:32:54 Hypothyroidism due to Juan Francisco's thyroiditis [id number] E06.3 TSH and FT4 in range however we did bump her unithroid from 25 up to 75 mcg daily- provided samples of 50 mcg as she is having some increased blood pressure and intermitte nt palpitatio ns--contin ue LT3 but drop down to 5 mcg twice daily with unithroid in morning and around 1-2 pm in afternoon. She was reminded to take her unithroid on empty stomach with glass of water and wait one hour to eat or have her coffee in morning and up to 4 hours if ever taking any heartburn or reflux medication s to help optimize absorption . Discussed paleo like diet with restrictio n of GMOs to help with energy and to optimize absorption of vitamins and minerals and reduce inflammati on. Menopausal and postmenopausal disorders [id number] N95.9 Send for bone density scan to screen for bone loss. Loss of hair [id number] L 65.9 Continue spironolac tone 150 mg daily.Send for iron and hormone panel. Will adjust her thyroid medication as she is showing symptoms of overreplac ement. Atypical chest pain 1025 83158 R07.89 Refer to cardiology and send for exercise stress test. Spent up to 26 minutes preparing to see the patient (eg, review of tests), obtaining and/or reviewing separately obtained history, performing a medically appropriat e examinatio n and evaluation , counseling and educating the patient, ordering medication s, tests, along with documentin g clinical informatio n in the electronic health record, independen tly interpreti ng results and communicat ing results to the patient. RTC in 4-6 months. Patient was provided a handwritte n lab order which contains our fax number. If she chooses to go outside of the [facility] system to obtain labwork she was advised to provide our fax number and my informatio n to the lab she will be obtaining labwork from in order to have her labs properly forwarded over for me to review so there is no loss of follow up due to use of outside network. She was also advised to contact our clinic informing us that she has completed her labwork so we are aware we will need to reach out to the appropriat e laboratory to request her results be forwarded to us so I might have the ability to review and make further medical decision making in her case. She voiced understand ing. [id number] Isis Pruitt NP [address] [address] 01/15/2023 15:43:15 01/15/2023 16:24:10 Colitis [id number] K52.9 Has been on bland diet, but not improving. without symptoms. Never colonoscop y- so don't know diverticul a status. Will treat for possible diverticul itis. Braxton diet and to avoid seeds and skins.Can' t rule out ovarian cyst, but pt to call in 10-14 days if symptoms persist. [id number] Isis Pruitt NP [facility] [address] 01/25/2023 11:24:40 01/25/2023 12:10:34 Left lower quadrant pain [id number] R10.[address] abd and pelvis with contrast on 01/21/23 per ER. Had mod-large volume stool in abd. Herpes zoster 4615373 B0 2.9 Left lower abd and lower back [id number] Wild Dyer MD [facility] [address] [place] [address] 04/01/2023 11:41:26 04/01/2023 12:46:29 Pain of right knee joint 1459320017 71095 M25.561 M25.562 Pain of bi lateral knee joints 8050634665 53197 M25.562 M25.561 Bilateral osteoarthritis of knees 5512833726 52114 M17.0 [id number] Danya Mosley MD [facility] [address] [place] [address] 05/13/2023 12:22:05 05/13/2023 14:02:51 Hypothyroidism 37609567 E03.9 TSH and FT4 in range- continue on euthyrox 50 mcg daily. FT3 low normal range with continued fatigue- would recommend patient take up to 10 mcg of T3 hormone twice daily before meals. She was reminded to take her euthyrox on empty stomach with glass of water and wait one hour to eat or have her coffee in morning and up to 4 hours if ever taking any heartburn or reflux medication s to help optimize absorption . Discussed paleo like diet with restrictio n of GMOs to help with energy and to optimize absorption of vitamins and minerals and reduce inflammati on. Vitamin B1 2 deficiency (non anemic) 06452272 E53.8 Continue on B12 injections for energy and focus. Spent up to 25 minutes preparing to see the patient (eg, review of tests), obtaining and/or reviewing separately obtained history, performing a medically appropriat e examinatio n and evaluation , counseling and educating the patient, ordering medication s, tests, along with documentin g clinical informatio n in the electronic health record, independen tly interpreti ng results and communicat ing results to the patient. Patient can be followed by PCP - she/he is aware of my resignatio n and last day of May 24. If needed his/her PCP can refer patient to another endocrinol ogist in the area. All questions /concerns answered and refills necessary at visit today. [id number] Ismael Cedeño MD [facility] [address] [place] [address] 12/19/2023 13:15:54 12/19/2023 13:32:34 Bilateral osteoarthritis of knees [id number] 07498 M17.0 Pain of bi lateral knee joints 4780190686 77942 M25.562 M25.531 [id number] Saul Zamora MD [facility] [address] 01/29/2024 11:15:42 01/29/2024 12:22:34 Chronic chest pain [id number] 25189 R07.9 Vitamin B1 2 deficiency (non anemic) 93488777 E53.8 Hypothyroidism 54555793 E03.9 I will manage. Last TSH 01/2024 Screening for malignant neoplasm of respiratory tract 061367694 Z12.2 [id number] Saul Zamora MD [address] [address] 10/08/2024 11:37:41 10/08/2024 12:22:00 Chronic headache disorder 048747919 G44.89 Seasonal a llergic rhinitis 784070668 J30.2 Bipolar disorder 1968607 4 F31.9 Cont f/u with Psych at as per schedule. Anxiety disorder 3227195 06 F41.9 Cigarette smoker 2789388 7 F17.210 Sinusitis 01615766 J32.9 Rheumatoid arthritis 698 90648 M06.9 Cont f/u with Rheumat at [facility] as per schedule. Hypothyroidism 39505570 E03.9 [id number] Ismael Cedeño MD [facility] [address] [place] [address] 11/17/2024 14:20:05 11/17/2024 15:39:13 Bilateral osteoarthritis of knees 6377193127 62290 M17.0 Pain of bi lateral knee joints 8229408922 28584 M25.562 M25.928 [id number] Ismael Cedeño MD [facility] [place] [address] [place] [address] 11/24/2024 13:35:56 11/24/2024 14:02:45 Bilateral osteoarthritis of knees 2269259925 12702 M17.0 Pain of bi lateral knee joints 9305073487 73377 M25.562 M25.139 [id number] Ismael Cedeño MD [facility] [place] [address] [place] [address] 12/01/2024 13:55:47 12/01/2024 14:19:30 Bilateral osteoarthritis of knees 4896252812 90693 M17.0 Pain of bi lateral knee joints 2891194785 28883 M25.562 M25.704 [id number] Saul Zamora MD [facility] [address] [place] [address] 12/28/2024 14:38:23 12/28/2024 15:14:15 Chronic headache disorder 374992524 G44.89 Seasonal a llergic rhinitis 927346114 J30.2 Bipolar disorder 6391306 4 F31.9 Cont f/u with Psych at as per schedule. Anxiety disorder 06 F41.9 Cigarette smoker 3316308 7 F17.210 Rheumatoid arthritis 698 62489 M06.9 Cont f/u with Rheumat at [facility] as per schedule. Hypothyroidism 80684378 E03.9 [id number] Saul Zamora MD [address] [address] 04/15/2025 10:51:38 04/15/2025 11:37:03 Hypothyroidism 50898037 E03.9 Chronic he adache disorder 233959705 G44.89 Seasonal a llergic rhinitis 332633282 J30.2 Bipolar disorder 4189394 4 F31.9 Cont f/u with Psych at as per schedule. Anxiety disorder F41.9 Cigarette smoker 6295143 7 F17.210 Rheumatoid arthritis 698 19398 M06.9 Cont f/u with Rheumat at [facility] as per schedule. Chronic neck pain 965775 2580 107 M54.2 G89.29 [id number] Saul Zamora MD [address] [address] 04/21/2025 16:56:25 04/21/2025 17:22:16 Seen in department 029794430 Z76.89 [id number] Nausea and vomiting 1693 1999 R11.2 059366 Gastro-eso phageal reflux disease with esophagitis 470617266 K21.00 0595186614 Chronic in tractable migraine without aura 6311776601 05907 G43.250 [id number] Health Concerns Section Related Observation LastModified by Organization Detai ls LastModified Time None Recorded Concern Status LastModified by Organization Details LastModified Time None Recorded Advance Directives Directive N: Payers Insurance Date Sequence Insurance Name Policy Number Policy Paul Covered Member ID Paul Member ID Guarantor Name 04/20/[address] [facility] [id number] Heraclio Gonzales [id number] Maite Gonzales 10/08/2024 1 [employer] (PPO) Maite Gonzales [id number] Maite Gonzales 12/19/2023 1 [place] [id number] Heraclio Gonzales [id number] Maite Gonzales Notes Date Note Type Note Provider Name and Address Organization Details Recorded Time 11/24/2024 text/html Patient returns for Euflexxa injection number 2 both knees she brings her medication from the specialty pharmacy. The patient has mild primary osteoarthritis both knees noted on x-ray exam with chronic aching pain she states the 1st round of injections last week as already starting to give her some good relief. DARON Amos [address], [place], [address], [employer] 11/24/2024 14:11:33 12/01/2024 text/html Patient returns for Euflexxa injection number 3 knees. She brings her medication from the specialty pharmacy. The patient has mild primary osteoarthritis both knees but pretty significant pain chronically. She has tried cortisone previously this gave her some mild relief but she would like to try something different see if that works better for her. She denies any new problems today she is actually getting good relief from the 1st 2 rounds of injections in his quite pleased with the results so far. DARON Amos [address], [place], [address], [employer] 12/01/2024 14:14:50 12/28/2024 text/html Pt is here for f/u on her meds and chronic conditions. Pt has not come for her annual exam yet. Pt has not seen Neuro yet. Doing much better with her headaches. C/o frontal headaches every few weeks for last 2+ yrs. Pt denies any h/o head trauma/LOC in the past. Pt is not sure about any FH of aneurysm. Pt has not seen any Neuro for this. Last eye exam in 06/04. Pt is f/u with Psych for her mood problems and is on meds by them. Pt is f/u with Rheumat for her RA and chronic joints pain and is on meds by them. Saul Zamora MD [address], [address], [place], [address], [employer] [facility] [employer] 12/28/2024 15:33:34 04/15/2025 text/html ACV: Pt wants referral to Neuro, Endo and Spine surgeon. C/o chronic neck area pain for last few yrs. Pt denies any fall/trauma/injury in the past. No workman's comp. Pt has not come for her annual exam yet. Pt has not seen Neuro yet. Doing much better with her headaches. C/o frontal headaches every few weeks for last 2+ yrs. Pt denies any h/o head trauma/LOC in the past. Pt is not sure about any FH of aneurysm. Pt has not seen any Neuro for this. Last eye exam in 06/04. Pt is f/u with Psych for her mood problems and is on meds by them. Pt is f/u with Rheumat for her RA and chronic joints pain and is on meds by them. Saul Zamora MD [address], [place], [address], [employer] [facility] [employer] 04/15/2025 11:27:04 04/21/2025 text/html fuv: Pt was seen at last weekend due to n, v and d and she was diagnosed with Gastritis and was put on 3 meds. She is feeling overall better. Still not back to her normal yet. Pt has h/o blood in vomiting and stool. Pt has seen GI couple yrs ago and had c-scope done and it was good as per pt. Pt never had any EGD done. Still her migraine is not controlled. Pt did very well with Qulipta, but her insurance has not approved it. Pt has not gone for x-rays yet. Saul Zamora MD [address], [place], [address], [employer] [facility] [employer] 04/21/2025 17:43:33 OBGyn Episode No OBEpisode recorded.
--- OUTSIDE RECORDS SUMMARY | 2025-05-07 16:26 | XMS_ITS | Clinical Summary ---
Author Organization [facility] Address [address] [place] [address] Care Team Providers Care Rounder Hand Name Role Phone Unavailable Primary Care Provider Unavailabl e Encounters Date Type Department Care Team Description 03/12/2025 Telephone [facility] [place] [address] [place] [address] Seble Ron, A Appointment Request [...]
[2025-05-07 16:31] VITALS: BP 145/81; PULSE 84; RESP 14; TEMP 36.4; O2SAT 99
--- NOTE | 2025-05-07 17:10 | ED.HA ---
HPI - Headache General Chief Complaint: Headache Stated Complaint: Headache Time Seen by Provider: 05/07/25 16:54 Source: patient and RN notes reviewed Mode of arrival: ambulatory Limitations: no limitations History of Present Illness HPI Narrative: Patient presents today complaining of a sudden onset frontal headache that started at 7:30 a.m. this morning when she was vomiting. Vomiting x1, which patient states is due to some acid reflux symptoms. After the vomiting episode, patient's frontal headache has continued to worsen through the day and now she states that is her worst headache ever and she currently rates it 9/10. She does have history of migraines, but states her current headache is not similar to previous migraines. She has tried taking her Ubrelvy and Qulipta this morning without improvement. Associated symptoms include nausea, for which she did try some Zofran without improvement. Patient states after her vomiting episodes this morning her blood pressure was 161/110 at home. She took 60 mg of propranolol and states this did not help bring her blood pressure down and proceeded to take 20 mg more. States she still had elevated blood pressure and took another 60 mg. Patient did not make these decisions based on doctor's orders, but believed her headache was due to her elevated blood pressure and wanted to bring it down. She currently denies any chest pain, shortness of breath, vision changes, dizziness or lightheadedness, numbness or tingling, recent illness. Related Data Home Medications ?Medication ?Instructions ?Recorded ?Confirmed ?Last Taken ?Type gabapentin 300 mg capsule 600 mg PO TID 08/03/19 02/20/24 Unknown History lamotrigine 200 mg tablet 200 mg PO BID 08/03/19 02/20/24 Unknown History lorazepam 0.5 mg tablet 1 mg PO DAILY 08/03/19 02/20/24 03/12/23 History propranolol 10 mg tablet 20 mg PO TID 08/03/19 02/20/24 03/12/23 History trazodone 150 mg tablet 150 mg PO DAILY 08/03/19 02/20/24 Unknown History trihexyphenidyl 2 mg tablet 2 mg PO DAILY 08/03/19 02/20/24 Unknown History levothyroxine 25 mcg tablet 25 mcg PO DIRECTED 05/07/22 02/20/24 Unknown History spironolactone 50 mg tablet 150 mg PO DAILY 05/07/22 02/20/24 Unknown History vilazodone 40 mg tablet 40 mg PO DAILY 05/07/22 02/20/24 Unknown History cyanocobalamin (vitamin B-12) 1,000 mcg IM WEEKLY 03/01/23 02/20/24 Unknown History 1,000 mcg/mL injection solution (Dodex) liothyronine 5 mcg tablet 5 mcg PO BID 03/01/23 02/20/24 Unknown History ziprasidone HCl 80 mg capsule 80 mg PO BID 03/01/23 02/20/24 Unknown History Allergies Allergy/AdvReac Type Severity Reaction Status Date / Time amitriptyline AdvReac Unknown bloating Verified 05/07/25 16:32 bupropion (From Wellbutrin) AdvReac Unknown Headache Verified 05/07/25 16:32 [facility] Past Medical History Medical History Left lower quadrant abdominal pain Seronegative rheumatoid arthritis of both hands Vitamin D deficiency Generalized osteoarthritis of multiple sites Bilateral hand pain Encounter for screening for other viral diseases Vitamin D deficiency (~02/2020) Anxiety Arthritis Depression Migraines Thyroid disease Surgical History Surgical History H/O breast surgery Family History Family History Other Asthma Depression Hypertension Social History Social History Smoking packs per day: 1 Smoking cigarettes per day: 20.0 Years smoked: 35 Smoking pack-years: 35.00 Smoking status: Current every day smoker Tobacco type: cigarettes Alcohol intake: never Substance use: never Substance use type: does not use Lack of Transportation: No Lack of Food: Never True Current Housing: I Have Housing Concerned About Future Housing: No Difficulty Paying Gas/Electric Bills: No Difficulty Paying for Meds: No Currently Unemployed: No Education: Decline to Answer Difficulty w/ Childcare or Family Care: No Living arrangements: with family Spiritual care concerns: No Comments At time of signature, I have reviewed and agree with nursing past medical, surgical, social and family history unless otherwise noted. Please see nursing chart for further information. There is no relevant family history pertinent to the presenting complaint Exam Narrative: GENERAL: Well-appearing, well-nourished, and in no acute distress. HEAD: Normocephalic, atraumatic. EYES: PERRL. No redness or drainage. Conjunctivae normal. +Nystagmus noted bilaterally. ENT: Mucous membranes pink and moist. NECK: Normal AROM. CHEST: No respiratory distress. Clear to auscultation. HEART: Regular rate and rhythm. No murmur appreciated. EXTREMITIES: Normal range of motion. No edema. Hand mail clerk equal and strong. 5/5 strength in BLE. SKIN: Warm, dry, no rash. Capillary refill normal. Normal skin turgor. NEURO: No focal deficits. Alert and oriented x3. Gait steady. PSYCH: Normal affect. No signs of depression or anxiety. Course Course Level of Care: Express Care Visit Vital Signs Vital signs: Vital Signs Temperature 97.5 F L 05/07/25 16:31 Pulse Rate 84 05/07/25 16:31 Respiratory Rate 14 05/07/25 16:31 Blood Pressure 145/81 H 05/07/25 16:31 Pulse Oximetry 99 05/07/25 16:31 Oxygen Delivery Room Air 05/07/25 16:31 Temperature 97.5 F L 05/07/25 16:31 Pulse Rate 84 05/07/25 16:31 Respiratory Rate 14 05/07/25 16:31 Blood Pressure 145/81 H 05/07/25 16:31 Pulse Oximetry 99 05/07/25 16:31 Oxygen Delivery Room Air 05/07/25 16:31 Reviewed Transfer Transfered to: [place] Transportation: Other (Private vehicle. Patient declines EMS) Transfer rationale: Severe headache Accepting physician: Chad [facility] - Head[facility] Narrative Medical decision making narrative: 59 yo female patient with history of HTN, migraine presents with sudden onset severe frontal headache after vomiting this morning at 0730. Headache worsened throughout the day and she currently rates it 9/10. Reports worst headache ever. Migraine medications have not helped. Patient has been taking extra doses of propranolol throughout the day for elevated BP, which she believes is causing her headache, for a total of 140mg. Upon exam, patient has nystagmus bilaterally, but exam is otherwise normal. VSS. Based on history, severity and timing of headache, and worsening of symptoms, recommend ER transfer for further evaluation. Patient agrees with plan, but declines EMS transport. Differential Diagnosis Differential diagnosis: Likely migraine and subarachnoid hemorrhage Critical Care Time Critical Care Time Critical Care Time: No Discharge Plan Discharge Clinical Impression: Sudden onset of severe headache Patient Disposition: Acute Care Hospital Condition: Stable Patient Language: [place]an Prescriptions: No Action ondansetron 4 mg tablet,disintegrating 4 mg PO Q6H PRN (Reason: nausea and vomiting) Qty: 14 0RF famotidine [Pepcid] 20 mg tablet 20 mg PO DAILY Qty: 30 0RF omeprazole 10 mg capsule,delayed release(DR/EC) 10 mg PO DAILY Qty: 30 0RF spironolactone 50 mg Tablet 150 mg PO DAILY levothyroxine 25 mcg Tablet 25 mcg PO DIRECTED vilazodone 40 mg Tablet 40 mg PO DAILY Rx Instructions: must administer with a meal/food gabapentin 300 mg capsule 600 mg PO TID lamotrigine 200 mg tablet 200 mg PO BID lorazepam 0.5 mg tablet 1 mg PO DAILY propranolol 10 mg tablet 20 mg PO TID trazodone 150 mg tablet 150 mg PO DAILY trihexyphenidyl 2 mg tablet 2 mg PO DAILY hydroxychloroquine [Plaquenil] 200 mg tablet 200 mg PO DAILY Qty: 90 1RF leflunomide 20 mg tablet 20 mg PO DAILY Qty: 30 4RF methocarbamol 750 mg tablet 750 mg PO TID PRN (Reason: muscle spasm) Qty: 90 3RF dicyclomine 20 mg tablet 20 mg PO TID PRN (Reason: abdominal pain) Qty: 30 0RF ziprasidone HCl 80 mg Capsule 80 mg PO BID Rx Instructions: give with food (meal/snack) liothyronine 5 mcg Tablet 5 mcg PO BID cyanocobalamin (vitamin B-12) [Dodex] 1,000 mcg/mL solution 1,000 mcg IM WEEKLY Follow-up/Referrals: UNKNOWN,DOCTOR [Primary Care Provider] Time of Disposition: 17:11
== END 2025-05-07 17:14 | disposition short-term general hospital (02) ==
PROVIDERS: Emergency Provider Nurse Practitioner
DX: R51.9 Headache, unspecified (principal); F17.210 Nicotine dependence, cigarettes, uncomplicated
CPT/HCPCS: 99213; G0463

== ENCOUNTER 2025-05-07 17:39 | Emergency (ER) | payer OTHER, SELFPAY ==
--- NOTE | ~2025-05-07 | CT_ITS ---
EXAMINATION: CT BRAIN W/O DATE: 05/07/2025 18:45 INDICATION: Headache and vomiting TECHNIQUE: Computed tomography (CT) of the head was performed without intravenous contrast. The dose-length product was 605.33 mGy-cm. Automated exposure control and iterative reconstruction technique were employed. COMPARISON: FINDINGS: Normal brain parenchymal volume for age. Normal ring-white differentiation. No acute intracranial hemorrhage, infarction, mass or mass effect. No ventriculomegaly or midline shift. Midline sagittal images demonstrate a normal corpus callosum, craniovertebral junction and sella turcica. Basilar cisterns are patent. Paranasal sinuses and mastoids are pneumatized. No depressed skull fractures. IMPRESSION: 1. No acute intracranial abnormality. Reviewed, dictated and finalized at location O.
[2025-05-07 18:17] VITALS: BP 149/93; PULSE 82; RESP 16; TEMP 36.5; O2SAT 99
--- NOTE | 2025-05-07 18:19 | ED.HA ---
HPI - Headache General Chief Complaint: Headache <Sinai Lamb PA-C - Last Filed: 05/10/25 10:11> Stated Complaint: vomiting, headache, hypertension <Sinai Lamb PA-C - Last Filed: 05/10/25 10:11> Time Seen by Provider: 05/07/25 18:19 <Sinai Lamb PA-C - Last Filed: 05/10/25 10:11> Focused HPI: This is a 59 year old female that presents to the ER for headache, vomiting. Ongoing since this morning. Seen at urgent care and sent to the ER for further evaluation. Also reports her blood pressure has been high. GENERAL: Well-appearing, well-nourished, and in no acute distress. HEAD: Normocephalic, atraumatic. CHEST: Clear to auscultation. ?No respiratory distress. HEART: Regular rate and rhythm.? NEURO: ?Alert and oriented x3. Patient screened in triage and initial orders placed.? ?Additional care and disposition to be based upon?diagnostic testing and treatment. <Sinai Lamb PA-C - Last Filed: 05/10/25 10:11> Focused HPI: This is a 59 year old female that presents to the ER for headache, vomiting. Ongoing since this morning. Seen at urgent care and sent to the ER for further evaluation. Also reports her blood pressure has been high. GENERAL: Well-appearing, well-nourished, and in no acute distress. HEAD: Normocephalic, atraumatic. CHEST: Clear to auscultation. ?No respiratory distress. HEART: Regular rate and rhythm.? NEURO: ?Alert and oriented x3. Patient screened in triage and initial orders placed.? ?Additional care and disposition to be based upon?diagnostic testing and treatment. Agree with triage assessment. Patient also states that she does take medications for migraine headaches with [facility] them monthly injection and states that she must upper injection this month and was told that she would not be getting another 1 until next month which could be will precipitated her current migraine headache. <Ramana Corrales MD - Last Filed: 05/07/25 20:49> Related Data Home Medications: Home Medications ?Medication ?Instructions ?Recorded ?Confirmed ?Last Taken ?Type gabapentin 300 mg capsule 600 mg PO TID 08/03/19 02/20/24 Unknown History lamotrigine 200 mg tablet 200 mg PO BID 08/03/19 02/20/24 Unknown History lorazepam 0.5 mg tablet 1 mg PO DAILY 08/03/19 02/20/24 03/12/23 History propranolol 10 mg tablet 20 mg PO TID 08/03/19 02/20/24 03/12/23 History trazodone 150 mg tablet 150 mg PO DAILY 08/03/19 02/20/24 Unknown History trihexyphenidyl 2 mg tablet 2 mg PO DAILY 08/03/19 02/20/24 Unknown History levothyroxine 25 mcg tablet 25 mcg PO DIRECTED 05/07/22 02/20/24 Unknown History spironolactone 50 mg tablet 150 mg PO DAILY 05/07/22 02/20/24 Unknown History vilazodone 40 mg tablet 40 mg PO DAILY 05/07/22 02/20/24 Unknown History cyanocobalamin (vitamin B-12) 1,000 mcg IM WEEKLY 03/01/23 02/20/24 Unknown History 1,000 mcg/mL injection solution (Dodex) liothyronine 5 mcg tablet 5 mcg PO BID 03/01/23 02/20/24 Unknown History ziprasidone HCl 80 mg capsule 80 mg PO BID 03/01/23 02/20/24 Unknown History <Sinai Lamb PA-C - Last Filed: 05/10/25 10:11> Allergies/Adverse Reactions: Allergies Allergy/AdvReac Type Severity Reaction Status Date / Time amitriptyline AdvReac Unknown bloating Verified 05/07/25 18:19 bupropion (From Wellbutrin) AdvReac Unknown Headache Verified 05/07/25 18:19 <Sinai Lamb PA-C - Last Filed: 05/10/25 10:11> Review of Systems Review of Systems: All systems are reviewed and are negative unless stated otherwise in the HPI. <Ramana Corrales MD - Last Filed: 05/07/25 20:49> PMFSH Past Medical History Medical History: Medical History Left lower quadrant abdominal pain Seronegative rheumatoid arthritis of both hands Vitamin D deficiency Generalized osteoarthritis of multiple sites Bilateral hand pain Encounter for screening for other viral diseases Vitamin D deficiency (~02/2020) Anxiety Arthritis Depression Migraines Thyroid disease <Sinai Lamb PA-C - Last Filed: 05/10/25 10:11> Surgical History Surgical History: Surgical History H/O breast surgery <Sinai Lamb PA-C - Last Filed: 05/10/25 10:11> Family History Family History: Family History Other Asthma Depression Hypertension <Sinai Lamb PA-C - Last Filed: 05/10/25 10:11> Social History Social History: Social History Smoking packs per day: 1 Smoking cigarettes per day: 20.0 Years smoked: 35 Smoking pack-years: 35.00 Smoking status: Current every day smoker Tobacco type: cigarettes Alcohol intake: never Substance use: never Substance use type: does not use Lack of Transportation: No Lack of Food: Never True Current Housing: I Have Housing Concerned About Future Housing: No Difficulty Paying Gas/Electric Bills: No Difficulty Paying for Meds: No Currently Unemployed: No Education: Decline to Answer Difficulty w/ Childcare or Family Care: No Living arrangements: with family Spiritual care concerns: No <Sinai Lamb PA-C - Last Filed: 05/10/25 10:11> Exam Narrative: General: Alert, awake, afebrile, in no acute distress. HEENT: PERRL, no rhinorrhea, no post nasal drip, oropharynx clear. Neck: Trachea midline, no JVD, no lymphadenopathy. Cardiovascular: Regular rate and rhythm, no murmurs, rubs or gallops, no peripheral edema. Respiratory: Clear to auscultation bilaterally, no tachypnea, no wheezing, no rhonchi, no rubs, no respiratory distress. Abdomen: Soft, nontender, nondistended, no rebound, no guarding, no peritoneal signs. Musculoskeletal: No joint swelling or deformity, normal muscle tone. Skin: No rashes or petechia, no signs of infection. Psychiatric: Alert and oriented, normal behavior and judgment for situation. Neurological: Alert and oriented to person, place, and time. Follows all commands. No focal deficits, speech is clear and fluent. <Ramana Corrales MD - Last Filed: 05/07/25 20:49> Course Vital Signs Vital signs: Vital Signs Temperature 97.7 F 05/07/25 18:17 Pulse Rate 82 05/07/25 18:17 Respiratory Rate 16 05/07/25 18:17 Blood Pressure 149/93 H 05/07/25 18:17 Pulse Oximetry 99 05/07/25 18:17 Temperature 97.7 F 05/07/25 18:17 Pulse Rate 82 05/07/25 18:17 Respiratory Rate 16 05/07/25 18:17 Blood Pressure 149/93 H 05/07/25 18:17 Pulse Oximetry 99 05/07/25 18:17 <Sinai Lamb PA-C - Last Filed: 05/10/25 10:11> Vital Signs Temperature 97.7 F 05/07/25 18:17 Pulse Rate 82 05/07/25 18:17 Respiratory Rate 16 05/07/25 18:17 Blood Pressure 149/93 H 05/07/25 18:17 Pulse Oximetry 99 05/07/25 18:17 Temperature 97.7 F 05/07/25 18:17 Pulse Rate 82 05/07/25 18:17 Respiratory Rate 16 05/07/25 18:17 Blood Pressure 149/93 H 05/07/25 18:17 Pulse Oximetry 99 05/07/25 18:17 <Ramana Corrales MD - Last Filed: 05/07/25 20:49> MDM - Headache MDM Narrative Medical decision making narrative: The patient was evaluated by myself in the emergency department. History is obtained from patient who is an independent historian and physical exam was performed. External medical records were reviewed at this time. IV was established and pertinent tests were ordered. Patient was administered 15 mg of IV Toradol, 25 mg of IV Benadryl, 10 mg IV Reglan and 1 L IV fluid bolus with normal saline. Imaging studies obtained included CT brain without IV contrast which was independently interpreted by me revealing no acute process, which is pending final radiology interpretation. Differential diagnosis considerations include migraine headache, tension headache, acute viral syndrome, dehydration. Comorbidities impacting this visit include history of migraine headaches. I have evaluated and discussed social determinants of health with the patient that could potentially impact subsequent diagnosis and treatment plans. On repeat assessment of the patient, reevaluation revealed that the patient is doing well and is in no acute distress. Patient symptoms have improved since she arrived to our emergency department. Repeat vital signs were all reviewed and noted to be stable. Differential diagnosis and treatment plan were discussed with the patient at bedside. Patient agrees with discussion and after shared medical decision making agrees with discharge. All questions were answered to the patient's satisfaction. Patient will follow up with her PCP in 3-5 days. Patient was provided with strict return precautions and instructed to return to the emergency department if any new or worsening symptoms develop. The patient was discharged in stable condition. <Ramana Corrales MD - Last Filed: 05/07/25 20:49> Imaging Data Radiologist's impression: ITS Impressions Head CT 05/07/25 18:59 IMPRESSION: 1. No acute intracranial abnormality. <Sinai Lamb PA-C - Last Filed: 05/10/25 10:11> Critical Care Time Critical Care Time Critical Care Time: No <Sinai Lamb PA-C - Last Filed: 05/10/25 10:11> Discharge Plan Discharge Clinical Impression: Headache Qualifiers: Headache type: unspecified Headache chronicity pattern: acute headache Intractability: not intractable Qualified Code(s): R51.9 - Headache, unspecified <Sinai Lamb PA-C - Last Filed: 05/10/25 10:11> Patient Disposition: Home <Sinai Lamb PA-C - Last Filed: 05/10/25 10:11> Condition: Improved <Sinai Lamb PA-C - Last Filed: 05/10/25 10:11> Instructions: Antibiotic Form, Acute Headache (ED) <Sinai Lamb PA-C - Last Filed: 05/10/25 10:11> Additional Instructions: Please follow-up with your family doctor/neurologist within the next 3-5 days. Return to emergency department any new or worsening symptoms develop. <Sinai Lamb PA-C - Last Filed: 05/10/25 10:11> Patient Language: Sammarinese <Sinai Lamb PA-C - Last Filed: 05/10/25 10:11> Prescriptions: No Action ondansetron 4 mg tablet,disintegrating 4 mg PO Q6H PRN (Reason: nausea and vomiting) Qty: 14 0RF famotidine [Pepcid] 20 mg tablet 20 mg PO DAILY Qty: 30 0RF omeprazole 10 mg capsule,delayed release(DR/EC) 10 mg PO DAILY Qty: 30 0RF spironolactone 50 mg Tablet 150 mg PO DAILY levothyroxine 25 mcg Tablet 25 mcg PO DIRECTED vilazodone 40 mg Tablet 40 mg PO DAILY Rx Instructions: must administer with a meal/food gabapentin 300 mg capsule 600 mg PO TID lamotrigine 200 mg tablet 200 mg PO BID lorazepam 0.5 mg tablet 1 mg PO DAILY propranolol 10 mg tablet 20 mg PO TID trazodone 150 mg tablet 150 mg PO DAILY trihexyphenidyl 2 mg tablet 2 mg PO DAILY hydroxychloroquine [Plaquenil] 200 mg tablet 200 mg PO DAILY Qty: 90 1RF leflunomide 20 mg tablet 20 mg PO DAILY Qty: 30 4RF methocarbamol 750 mg tablet 750 mg PO TID PRN (Reason: muscle spasm) Qty: 90 3RF dicyclomine 20 mg tablet 20 mg PO TID PRN (Reason: abdominal pain) Qty: 30 0RF ziprasidone HCl 80 mg Capsule 80 mg PO BID Rx Instructions: give with food (meal/snack) liothyronine 5 mcg Tablet 5 mcg PO BID cyanocobalamin (vitamin B-12) [Dodex] 1,000 mcg/mL solution 1,000 mcg IM WEEKLY <Sinai Lamb PA-C - Last Filed: 05/10/25 10:11> Follow-up/Referrals: UNKNOWN,DOCTOR [Primary Care Provider] - 3 Days <Sinai Lamb PA-C - Last Filed: 05/10/25 10:11> Time of Disposition: 20:48 <Sinai Lamb PA-C - Last Filed: 05/10/25 10:11> 20:48 <Ramana Corrales MD - Last Filed: 05/07/25 20:49>
--- OUTSIDE RECORDS SUMMARY | 2025-05-07 20:40 | XMS_ITS | Clinical Summary ---
Author Organization [facility] Address [address] [place] [address] Care Team Providers Care Ic Designer Custom Name Role Phone Unavailable Primary Care Provider Unavailabl e Encounters Date Type Department Care Team Description 03/12/2025 Telephone [facility], [place] [address] [place] [address] Seble Ron, A Appointment Request [...]
[2025-05-07] MEDS: KETOROLAC 15 MG/ML VIAL (*BKC) IV PUSH (20:55)
[2025-05-07] MEDS: SODIUM CHLORIDE 0.9% IV 1,000 ML 999 ML IV CONT (20:55)
[2025-05-07] MEDS: METOCLOPRAMIDE HCL INJ 10 MG/2 ML VIAL IV PUSH (20:56)
== END 2025-05-07 21:59 | disposition home or self-care (01) ==
PROVIDERS: Emergency Provider Emergency Medicine
DX: R51.9 Headache, unspecified (principal); F17.210 Nicotine dependence, cigarettes, uncomplicated
CPT/HCPCS: 70450; 96361; 96374; 96375; 99284; J1200; J1885; J2765; J7030

== ENCOUNTER 2025-06-24 15:19 | Outpatient (CLI) | payer OTHER, SELFPAY ==
--- NOTE | ~2025-06-24 | CT_ITS ---
CT abdomen pelvis w con INDICATION:Left lower quadrant pain . COMPARISON: 01/22/2020 TECHNIQUE: Axial images of the abdomen and pelvis were obtained following infusion of 100 mL Isovue 300. Dose optimization technique was utilized. FINDINGS: The lung bases are clear. Hepatic cysts are noted measuring up to 12 x 10 mm. No intrahepatic mass or ductal dilatation is evident. The gallbladder is unremarkable. The pancreas and spleen are normal in appearance. The adrenal glands are symmetric in size. The kidneys demonstrate symmetric uptake and excretion of contrast. No cystic mass is evident. There is no solid mass. There is no hydronephrosis. Evaluation of the stomach and bowel loops are limited due to lack of oral contrast. The appendix is normal in appearance. Diffuse stool retention is consistent with constipation unchanged from prior study. The bladder and rectum are normal. Enhancing fibroid in the right fundus is stable measuring 2.1 cm. No free intraperitoneal fluid or air is evident. There is no significant retroperitoneal lymphadenopathy. The aorta, visceral vessels and renal arteries demonstrate normal caliber and patency. The lower thoracic and lumbar vertebrae are in normal alignment. IMPRESSION: No acute abnormality is noted in the abdomen and pelvis. Constipation again noted. Enhancing fibroid is stable measuring 2.[address] scans at this facility are performed using low dose modulation techniques as appropriate to perform exam including the following: automated exposure control; use of iterative reconstruction technique; adjustment of the mA and/or kV according to patient size (this includes techniques or standardized protocols for targeted exams where dose is matched to indication/reason for exam). Reviewed, dictated and finalized at location S. CLEANING MACHINE OPERATOR IMPRESSION: No acute abnormality is noted in the abdomen and pelvis. Constipation again noted. Enhancing fibroid is stable measuring 2.[address] scans at this facility are performed using low dose modulation techniqu es as appropriate to perform exam including the following: automated exposure c ontrol; use of iterative reconstruction technique; adjustment of the mA and/or kV according to patient size (this includes techniques or standardized protocol s for targeted exams where dose is matched to indication/reason for exam).
== END 2025-06-24 15:20 | disposition home or self-care (01) ==
LOC: MICIMG 15:20
PROVIDERS: PCP Nurse Practitioner Family; Visit Provider Nurse Practitioner Family
DX: R10.32 Left lower quadrant pain (principal); D25.9 Leiomyoma of uterus, unspecified
CPT/HCPCS: 74177; Q9967

== ENCOUNTER 2025-06-24 15:28 | Outpatient (CLI) | payer OTHER, SELFPAY ==
--- NOTE | ~2025-06-24 | XR_ITS ---
XR cervical spine 4-5V Indication: Cervicalgia Comparison: None Findings: No fracture, no subluxation flexion and extension. The disc heights are intact. Soft tissues unremarkable Impression: No acute abnormality. Reviewed, dictated and finalized at location P. ER MACHINE TENDER Impression: No acute abnormality.
== END 2025-06-24 15:29 | disposition home or self-care (01) ==
LOC: MICIMG 15:30
PROVIDERS: PCP Nurse Practitioner Family; Visit Provider Family Medicine
DX: M54.2 Cervicalgia (principal); G89.29 Other chronic pain
CPT/HCPCS: 72050